=== PATIENT | male | born 1995 | race Caucasian/White ===

== ENCOUNTER 2023-01-29 07:03 | Outpatient (OUT) | payer MEDICARE, MEDICAID, SELFPAY ==
[2023-01-29 07:26] LABS: Basophils Percent Auto 0.5 % (0.2-2.0); Eosinophils Absolute Auto 0.1 10^3/uL (0.0-0.7); Eosinophils Percent Auto 1.9 % (0.9-7.0); Hematocrit 42.9 % (42.0-54.0); Hemoglobin 13.5 g/dL (14.0-18.0); Immature Granulocytes Abs Auto 0.01 10^3/uL (0.00-0.03); Immature Granulocytes Pct Auto 0.2 % (0.0-0.5); Lymphocytes Absolute Auto 1.6 10^3/uL (1.2-3.8); Lymphocytes Percent Auto 36.8 % (20.5-60.0); Mean Corpuscular HGB Conc 31.5 g/dL (29.9-35.2); Mean Corpuscular Hemoglobin 28.3 pg (25.9-34.0); Mean Corpuscular Volume 89.9 fL (80.0-94.0); Mean Platelet Volume 11.4 fL (9.5-13.5); Monocytes Absolute Auto 0.4 10^3/uL (0.3-0.8); Monocytes Percent Auto 9.4 % (1.7-12.0); Neutrophils Absolute Auto 2.2 10^3/uL (1.4-6.5); Neutrophils Percent Auto 51.2 % (43.0-75.0); Platelet Count 160 10^3/uL (150-450); Red Blood Count 4.77 10^6/uL (4.70-6.10); Red Cell Distribution Width 13.4 % (11.0-15.0); White Blood Count 4.2 10^3/uL (4.0-11.0)
[2023-01-29 14:46] LABS: Alanine Aminotransferase 21 U/L (16-63); Albumin Globulin Ratio 0.9; Alkaline Phosphatase 72 U/L (46-116); Anion Gap 11.7; Aspartate Amino Transferase 49 U/L (15-37); Bilirubin Total 0.6 mg/dL (0.2-1.0); Calcium 10.4 mg/dL (8.5-10.1); Carbon Dioxide 27.6 mmol/L (21.0-32.0); Chloride 112 mmol/L (98-107); Estimated GFR (African America >60 (>=60); Estimated GFR (Non-African Ame >60 (>=60); Globulin 4.3 g/dL; Glucose 88 mg/dL (74-106); Potassium 5.3 mmol/L (3.5-5.1); Sodium 146 mmol/L (136-145); Total Protein 8.3 g/dL (6.4-8.2); Valproic Acid 88.8 ug/mL (50.0-100.0)
[2023-01-30 04:09] LABS: Lithium (Eskalith(R)), Serum 0.8 mmol/L (0.5-1.2)
== END 2023-01-29 07:04 | disposition home or self-care (01) ==
LOC: LAB 07:03
PROVIDERS: PCP Family Medicine; Visit Provider Family Medicine
DX: Z79.899 Other long term (current) drug therapy (principal); M85.80 Other specified disorders of bone density and structure, unspecified site
CPT/HCPCS: 36415; 80053; 80164; 80178; 85025

== ENCOUNTER 2023-02-18 08:17 | Outpatient (OUT) | payer MEDICARE, MEDICAID, SELFPAY ==
--- NOTE | 2023-02-18 08:22 | XR_ITS ---
The [address] [address] Patient Name: PORFIRIO RUSSO MRN: [id number] date: 1995 Sex: M Assigned Patient Location: [facility] Current Patient Location: [facility] Accession/Order Number: [id number] Exam Date: 02/18/2023 08:28 Report Date: 02/18/2023 09:05 At the request of: MARCELINO JANE Procedure: XR DEXA axial skeleton EXAM: XR DEXA axial skeleton INDICATION: Osteopenia Evaluate bone mineral density. COMPARISON: DEXA scan 01/23/2021, 11/30/2018 FINDINGS: The bone density study was assessed by dual-energy x-ray absorptiometry with the [employer] scanner. The test results are expressed in T-Score, which is used for diagnosis for osteoporosis, and reflects the standard deviations from the mean peak bone mineral density in young adults. Additional information regarding the Z-Score reflects the standard deviations from the mean peak bone mineral density for age- and gender- matched subject. Lumbar Spine (L1-L4): BMD (gm/cm2): 1.256 T-Score: 0.3 Left Hip TOTAL: BMD (gm/cm2): 0.915 T-Score: -1.3 Left Hip NECK: BMD (gm/cm2): 0.971 T-Score: -0.8 Right hip TOTAL: BMD (gm/cm2): 0.932 T score: -1.2 Right hip NECK: BMD (gm/cm2): 1.059 T score: -0.1 XR/XR DEXA axial skeleton IMPRESSION: Bone mineral density WHO Classification: Osteopenia Fracture risk: Moderate REFERENCE: In children, postmenopausal women and males under age 50 not at increased risk for fractures, only Z-Scores, not T-Scores, are used to indicate fracture risk. A Z-Score above -2.0 is defined as within the expected range for age and Z-Score at or less than -2.0 is below the expected range for age. A Z-Score below the expected range for age in a patient with recent fractures and/or chronic corticosteroid treatment is consistent with a diagnosis of osteoporosis. In postmenopausal women and males over 50, comparison of the measured bone mineral density with the average value in young normal subjects (the T-Score) has been found to be useful in assessing fracture risk. Fracture risk approximately doubles for each 1.0 standard deviation (SD) that the individuals hip or spine bone mineral density is below the average value of young normal subjects. The World Health Organization (WHO) has provided the following definitions: 1. Normal: T-Score within one standard deviation of young adult mean value (T-Score at or above -1.0). 2. Osteopenia (low bone mass): T-Score more than one standard deviation below the young adult mean but less than 2.5 standard deviations below the young adult mean (T-Score between -1.0 and -2.5). 3. Osteoporosis: T-Score at or more than 2.5 standard deviations below the young adult mean (T-Score at or less than -2.5). 4. Severe Osteoporosis (established osteoporosis): T-Score more than 2.5 standard deviations below young adult and one or more fragility fracture (T-Score less than -2.5 plus fragility fractures). Electronically authenticated by: MAYUR OLSON Date: 02/18/2023 09:05
== END 2023-02-18 08:18 | disposition home or self-care (01) ==
LOC: RAD 08:17
PROVIDERS: PCP Family Medicine; Visit Provider Family Medicine
DX: M85.89 Other specified disorders of bone density and structure, multiple sites (principal)
CPT/HCPCS: 77080

== ENCOUNTER 2024-03-07 06:43 | Outpatient (OUT) | payer MEDICARE, MEDICAID, SELFPAY ==
[2024-03-07 08:17] LABS: Basophils Percent Auto 0.5 % (0.2-2.0); Eosinophils Percent Auto 0.5 % (0.9-7.0); Hematocrit 39.4 % (42.0-54.0); Immature Granulocytes Abs Auto 0.05 10^3/uL (0.00-0.03); Immature Granulocytes Pct Auto 1.2 % (0.0-0.5); Lymphocytes Absolute Auto 1.1 10^3/uL (1.2-3.8); Lymphocytes Percent Auto 28.1 % (20.5-60.0); Mean Corpuscular Hemoglobin 28.3 pg (25.9-34.0); Mean Corpuscular Volume 85.8 fL (80.0-94.0); Monocytes Absolute Auto 0.6 10^3/uL (0.3-0.8); Monocytes Percent Auto 14.8 % (1.7-12.0); Neutrophils Absolute Auto 2.2 10^3/uL (1.4-6.5); Neutrophils Percent Auto 54.9 % (43.0-75.0); Platelet Count 150 10^3/uL (150-450); Red Blood Count 4.59 10^6/uL (4.70-6.10); Red Cell Distribution Width 13.1 % (11.0-15.0); White Blood Count 4.1 10^3/uL (4.0-11.0)
[2024-03-07 09:13] LABS: Alanine Aminotransferase 27 U/L (16-63); Albumin Level 3.7 g/dL (3.4-5.0); Alkaline Phosphatase 89 U/L (46-116); Anion Gap 14.1; Aspartate Amino Transferase 25 U/L (15-37); BUN Creatinine Ratio 16.8; Bilirubin Total 0.3 mg/dL (0.2-1.0); Calcium 10.1 mg/dL (8.5-10.1); Carbon Dioxide 28.2 mmol/L (21.0-32.0); Chloride 104 mmol/L (98-107); Estimated GFR (African America >60 (>=60); Estimated GFR (Non-African Ame >60 (>=60); Globulin 3.8 g/dL; Glucose 86 mg/dL (74-106); Potassium 4.3 mmol/L (3.5-5.1); Sodium 142 mmol/L (136-145); Total Protein 7.5 g/dL (6.4-8.2)
== END 2024-03-07 06:44 | disposition home or self-care (01) ==
LOC: LAB 06:49
PROVIDERS: PCP Family Medicine; Visit Provider Family Medicine
DX: K59.00 Constipation, unspecified (principal); M85.80 Other specified disorders of bone density and structure, unspecified site; F31.9 Bipolar disorder, unspecified; Z79.899 Other long term (current) drug therapy
CPT/HCPCS: 36415; 80053; 80164; 82306; 85025

== ENCOUNTER 2024-08-30 06:39 | Outpatient (OUT) | payer MEDICARE, MEDICAID, SELFPAY ==
--- OUTSIDE RECORDS SUMMARY | 2024-08-30 06:42 | XMS_ITS | CCD ---
Author Organization [facility] Inform ion Partnership [facility] Care Team Providers Care Director Of Student Financial Services Name Role Phone BUCK, DR VERNON Marinelli Admitting Unavailable JANE, DR VERNON Marinelli Attending Unavailable JANE, DR VERNON Marinelli Consulting Unavailable JANE, DR VERNON Marinelli Primary Care Unavailable JANE, DR VERNON Marinelli Attending Unavailable WEST, DR CATY Aparicio Consulting Unavailable JANE, DR VERNON Marinelli Primary Care Unavailable JANE, DR VERNON Marinelli Admitting Unavailable JANE, DR VERNON Marinelli Consulting Unavailable JANE, DR VERNON Marinelli Attending Unavailable JANE, DR VERNON Marinelli Consulting Unavailable JANE, DR VERNON Marinelli Primary Care Unavailable JANE, DR VERNON Marinelli Admitting Unavailable Unavailable Primary Care Provider Kaycee e Unavailable Primary Care Provider VERNON Sanchez Primary Care Physician [phone] VERNON JANE Attending Unavailable JANEVERNON MOULTON Admitting Unavailable VICKEY MARQUEZ Attending Unavailable Jane Vernon GORDON Primary Care Provider [phone] Medications Current Medications Medication Drug Class(es) Dates Sig (Normalized) Sig (Original) acetaminophen 650 mg rectal suppository (3 sources) take 650 mg rectal route every four hours as needed for pain and fever acetaminophen (Tylenol) 650 MG suppository Insert 650 mg into the rectum every 4 (four) hours if needed for mild pain or fever Active Aloe-Sodium Chloride (AYR SALINE NASAL GEL NASAL) (2 sources) apply 1 spray(s) nasal route twice daily Aloe-Sodium Chloride (AYR SALINE NASAL GEL NASAL) Instill 1 [place] into each nostril 2 times daily. 0 Active benzoyl peroxide 0.05 mg/mg / clindamycin 0.01 mg/mg topical gel (2 sources) Lincosamide Antibacterial Start: 04-09-2020 clindamycin-benzoy l peroxide (BENZACLIN) gel bisacodyl 10 mg rectal suppository (3 sources) Stimulant Laxative bisacodyl (Dulcolax) 10 MG suppository Insert 10 mg into the rectum Active busPIRone hydrochloride 10 mg oral tablet (5 sources) Start: 05-13-2019 take 2 tablets by mouth three times daily busPIRone (BUSPAR) 10 MG tablet Take 20 mg by mouth 3 times daily. 0 05/13/2019 Active take 1 tablet by aylin th in the morning, then take 1 tablet by mouth in the evening, then take 1 tablet by mouth at bedtime busPIRone (Buspar) 10 MG tablet Take 10 mg by mouth in the morning and 10 mg in the evening and 10 mg before bedtime. Active cloNIDine hydrochloride 0.2 mg oral tablet (5 sources) Central alpha-2 Adrenergic Agonist Start: 05-13-2019 take 1 tablet by mouth three times daily cloNIDine (CATAPRES) 0.2 MG tablet Take 0.2 mg by mouth 3 times daily. 0 05/13/2019 Active 1 ml denosumab 60 mg/ml prefilled syringe (3 sources) RANK Ligand Inhibitor inject 60 mg by subcutaneous injection once denosumab (Prolia) 60 MG/ML solution prefilled syringe Inject 60 mg under the skin 1 (one) time Active guanFACINE 2 mg oral tablet (5 sources) Central alpha-2 Adrenergic Agonist take 1 tablet by mouth in the morning, then take 1 tablet by mouth in the evening, then take 1 tablet by mouth at bedtime guanFACINE (Tenex) 2 MG tablet Take 1 tablet by mouth in the morning and 1 tablet in the evening and 1 tablet before bedtime. Active take 1 tablet by mouth once ulysses y GuanFACINE HCl 2 MG TB24 Take 1 Tablet by mouth daily. 0 Active ibuprofen 200 mg oral tablet (3 sources) Nonsteroidal Anti-inflammatory Drug take 1 tablet by mouth every six hours as needed for pain ibuprofen 200 MG tablet Take 200 mg by mouth every 6 (six) hours if needed for mild pain take 1-2 tablets by oral route every 6 hours as needed Oral Active iloperidone 12 mg oral tablet (5 sources) Atypical Antipsychotic Start: 05-13-20 19 take 1 tablet by mouth at bedtime Iloperidone (Fanapt) 12 MG TABS Take 12 mg by mouth at bedtime. 0 05/13/2019 Active linaclotide 0.29 mg oral capsule (5 sources) Guanylate Cyclase-C Agonist linaCLOtide (Linzess) 290 MCG capsule Take 290 mcg by mouth in the morning. Take before meals. take 1 capsule (290 mcg) by oral route once daily on an empty stomach at least 30 minutes before 1st meal of the day Oral 1 . Active lithium carbonate 300 mg oral capsule (5 sources) take 1 capsule by mouth in the morning lithium 300 MG capsule Take 300 mg by mouth in the morning and 300 mg in the evening. Take with meals. Active loratadine 10 mg oral tablet (5 sources) take 1 tablet by mouth once daily loratadine (Claritin) 10 MG tablet Take 10 mg by mouth Daily Active LORazepam 1 mg oral tablet (5 sources) Benzodiazepine take 1 tablet by mouth every eight hours as needed for anxiety LORazepam (Ativan) 1 MG tablet Take 1 mg by mouth every 8 (eight) hours if needed for anxiety Active take 1 tablet by mouth three teo es daily LORazepam (ATIVAN) 1 MG tablet Take 1 mg by mouth 3 times daily. 0 Active menthol 0.0044 mg/mg / zinc oxide 0.2 mg/mg topical ointment (3 sources) menthol-zinc oxi de (Calmoseptine - Risamine) 0.44-20.625 % ointment Apply 1 application topically if needed for irritation *please review for potential _update for eprescription and drug interaction check* Active metoprolol tartrate 100 mg oral tablet (5 sources) beta-Adrenergic Jeffry take 1 tablet by mouth in the morning metoprolol tartrate (Lopressor) 100 MG tablet Take 100 mg by mouth in the morning and 100 mg before bedtime. Active montelukast 10 mg oral tablet (5 sources) Leukotriene Receptor Antagonist take 1 tablet by mouth at bedtime montelukast (Singulair) 10 MG tablet Take 10 mg by mouth at bedtime Active multivitamin-children's (RS Complete) 18 MG chewable tablet (3 sources) multivitamin-chi ldren' s (RS Complete) 18 MG chewable tablet Chew 1 tablet Daily Active naltrexone hydrochloride 50 mg oral tablet (5 sources) Opioid Antagonist take 1 tablet by mouth in the morning naltrexone (Depade) 50 MG tablet Take 50 mg by mouth in the morning and 50 mg before bedtime. Active OLANZapine 20 mg oral tablet (5 sources) Atypical Antipsychotic take 2 tablets by mouth once daily OLANZapine (ZyPREXA) 20 MG tablet Take 2 tablets by mouth Daily Active take 1 tablet by mouth at bedtim e OLANZapine (ZyPREXA) 10 MG tablet Take 10 mg by mouth at bedtime. 0 Active ondansetron 4 mg oral tablet (3 sources) Serotonin-3 Receptor Antagonist take 1 tablet by mouth every six hours as needed for nausea and vomiting ondansetron (Zofran) 4 MG tablet Take 4 mg by mouth every 6 (six) hours if needed for nausea or vomiting Active Pediatric Multiple Vit-C-FA (CHILDRENS CHEWABLE VITAMINS ORAL) (2 sources) take 1 tablet by mouth once daily Pediatric Multiple Vit-C-FA (CHILDRENS CHEWABLE VITAMINS ORAL) Take 1 Tablet by mouth daily. 0 Active selenium sulfide 25 mg/ml medicated shampoo (2 sources) Start: 0 selenium sulfide 2.5 % topical suspension sennosides, residential 8.6 mg oral tablet (3 sources) take 2 tablets by mouth in the morning, then take 2 tablets by mouth in the evening, then take 2 tablets by mouth at bedtime senna (Senokot) 8.6 MG tablet Take 2 tablets by mouth in the morning and 2 tablets in the evening and 2 tablets before bedtime. Active sodium chloride 0.111 meq/ml nasal solution (3 sources) sodium chloride ([place]) 0.65 % nasal spray Administer 1 spray into each nostril if needed for congestion Active 24 hr divalproex sodium 500 mg extended release oral tablet (2 sources) Mood Stabilizer, Anti-epileptic Agent take 3 tablets by mouth at bedtime divalproex ER (DEPAKOTE ER) 500 MG ER tablet Take 3 Tablets by mouth at bedtime. 0 Active Problems Active Problems Problem Classification Problem Date Documented Da te Episodic/Chronic Anxiety disorders (3 sources) Mental health problem; Translations: [Nonpsychotic mental disorder, unspecified] Onset: 03-12-2024 03-12-2024 Chronic Attention-deficit, conduct, and disruptive behavior disorders (5 sources) Attention deficit hyperactivity disorder; Translations: [Attention-deficit hyperactivity disorder, unspecified type] Onset: 03-12-2024 05-25-2020 Chronic Attention-deficit, conduct, and disruptive behavior disorders (5 sources) Disruptive behavior disorder; Translations: [Conduct disorder, unspecified] Onset: 03-12-2024 03-12-2024 Chronic Developmental disorders (5 sources) Intellectual disability; Translations: [Unspecified intellectual disabilities] Onset: 03-12-2024 05-25-2020 Chronic Disorders usually diagnosed in infancy, childhood, or adolescence (5 sources) Autistic disorder; Translations: [Autistic disorder] Onset: 03-12-2024 05-25-2020 Chronic Headache; including migraine (2 sources) Migraine; Translations: [Migraine, unspecified, not intractable, without status migrainosus] 05-25-2020 Chronic Malaise and fatigue (4 sources) Weakness; Translations: [WEAKNESS] Onset: 05-21-2022 Episodic Mood disorders (10 sources) Bipolar disorder; Translations: [Bipolar disorder, unspecified] Onset: 03-12-2024 05-25-2020 Chronic Other bone disease and musculoskeletal deformities (2 sources) Osteopenia; Translations: [Other specified disorders of bone density and structure, unspecified site] 05-25-2020 Episodic Other eye disorders (2 sources) Nystagmus; Translations: [Unspecified nystagmus] 05-25-2020 Chronic Other gastrointestinal disorders (2 sources) Dysphagia; Translations: [Dysphagia, unspecified] 05-25-2020 Episodic Other gastrointestinal disorders (2 sources) Chronic constipation; Translations: [Other constipation] 05-25-2020 Episodic Other skin disorders (2 sources) Acne; Translations: [Acne, unspecified] 05-25-2020 Episodic Other upper respiratory infections (2 sources) Chronic sinusitis; Translations: [Chronic sinusitis, unspecified] 05-25-2020 Chronic Spondylosis; intervertebral disc disorders; other back problems (1 source) Spondylosis without myelopathy or radiculopathy, cervical region; Translations: [SPONDYLS W/O MYELO-/RADICULOP CERV] Onset: 05-26-2022 Chronic Past or Other Problems Problem Classification Problem Date Documented Date Episodic/Chronic Conditions associated with dizziness or vertigo (4 sources) Dizziness and giddiness; Translations: [DIZZINESS AND GIDDINESS] Onset: 03-22-2022 Episodic Disorders of teeth and jaw (2 sources) Dental caries; Translations: [Dental caries, unspecified] Onset: 05-22-2020 05-22-2020 Episodic E Codes: Fall (3 sources) Fall; Translations: [Unspecified fall, initial encounter] Onset: 03-12-2024 03-12-2024 Episodic Epilepsy; convulsions (4 sources) Seizure; Translations: [Unspecified convulsions] Onset: 03-16-2024 03-16-2024 Episodic Other circulatory disease (1 source) Hypotension, unspecified; Translations: [HYPOTENSION UNSPECIFIED] Onset: 03-25-2022 Episodic Other inflammatory condition of skin (5 sources) Seborrheic dermatitis; Translations: [Seborrheic dermatitis, unspecified] Onset: 03-12-2024 05-25-2020 Episodic Other injuries and conditions due to external causes (1 source) History of falling; Translations: [HISTORY OF FALLING] Onset: 03-25-2022 Episodic Other nutritional; endocrine; and metabolic disorders (4 sources) Developmental delay; Translations: [Unspecified lack of expected normal physiological development in childhood] Onset: 03-16-2024 03-16-2024 Episodic Results Test Name Value Interpretation Reference Range Facility Progress Noteson 08-11-2024 Security Patrol Driver Authentication Interface Message Text Parent/guardian/pat ient was contacted for PAT AND OR Visit scheduled -- confirmed information with mom, also informed mom importance of receiving PSE call -- if not received surgery will be canceled 09/30/2024----- July at 2:54:05 PM ----- ----- Provider: LEONIE Zepeda, Dental-Javascript Web Developer -- Clinic: [place] ----- Normal [facility] Valpro[facility] Acidon 03-19-2023 Valproate [Moles/Vol] 105 microgram/mL Abnormal 50-99 [facility] Comment on above: Result Comment: Crit ical Result verified by repeat analysis\Critical Result S_VPA:105.[address] JANE AT [facility] by MIGUEL PORTER And Read Back For Confirmation at: 03/19/2023 09:27:40 Performed By: #### 2 206002, 6012304, 4423077, 7959954, 7091734, 05817754, 6170986, 3674740 #### [facility] [address] [place] [address] Auto Diffon 03-18-2023 Basophils/100 WBC (Bld) 0.9 % Normal 0.0-2.0 [facility] Comment on above: Order Comment: Order Added by Discern Expert. Performed By: #### 2 590283, 5227469, 7817866, 1562374, 7781804, 91183514, 0599206, 0316806 #### [facility] [address] [place] [address] Basophils/Leukocytes Auto (Bld) [Pure # fraction] 0.0 E9/L Normal 0.0-0.2 [facility] Comment on above: Order Comment: Order Added by Discern Expert. Performed By: #### 2 338955, 1341920, 3736015, 9487419, 4133441, 17420149, 3328623, 8983347 #### [facility] [address] [place] [address] Eosinophils/100 WBC (Bld) 4.5 % Normal 0.0-8.0 [facility] Comment on above: Order Comment: Order Added by Discern Expert. Performed By: #### 2 502200, 4929904, 9865296, 5563743, 0713227, 49168714, 4741909, 1036410 #### [facility] [address] [place] [address] Eosinophils/Leukocytes Auto (Bld) [Pure # fraction] 0.1 E9/L Normal 0.0-0.5 [facility] Comment on above: Order Comment: Order Added by Discern Expert. Performed By: #### 2 145375, 1230544, 6129430, 3128167, 9104870, 09132936, 5025837, 4133725 #### [facility] [address] [place] [address] Lymphocytes/100 WBC (Bld) 37.2 % Normal 14.0-50.0 [facility] Comment on above: Order Comment: Order Added by Discern Expert. Performed By: #### 2 116346, 6489743, 5604250, 5078246, 3450175, 18735423, 5183164, 6264078 #### [facility] [address] [place] [address] Lymphocytes/Leukocytes Auto (Bld) [Pure # fraction] 1.2 E9/L Normal 1.0-4.0 [facility] Comment on above: Order Comment: Order Added by Radha Expert. Performed By: #### 2 102027, 3731535, 1269753, 4188145, 2035804, 99577179, 2156403, 0947821 #### [facility] [address] [place] [address] Monocytes/100 WBC (Bld) 8.8 % Normal 4.0-14.0 [facility] Comment on above: Order Comment: Order Added by Radha Expert. Performed By: #### 2 050272, 9539974, 6709596, 9041597, 8963349, 49545984, 3413246, 1281677 #### [facility] [address] [place] [address] Monocytes/Leukocytes Auto (Bld) [Pure # fraction] 0.3 E9/L Normal 0.2-1.0 [facility] Comment on above: Order Comment: Order Added by Radha Expert. Performed By: #### 2 558258, 1758444, 3947475, 7051900, 5836735, 05449752, 6360750, 2309497 #### [facility] [address] [place] [address] Neutrophils/100 WBC (Bld) 48.6 % Normal 36.0-75.0 [facility] Comment on above: Order Comment: Order Added by Discern Expert. Performed By: #### 2 931023, 5172434, 0687613, 3181325, 0326077, 56603841, 6209023, 2197548 #### [facility] [address] [place] [address] Neutrophils/Leukocytes Auto (Bld) [Pure # fraction] 1.6 E9/L Low 2.0-7.5 [facility] Comment on above: Order Comment: Order Added by Radha Expert. Performed By: #### 2 226051, 3495351, 7656118, 8524980, 8244784, 69795624, 5713932, 2820629 #### [facility] [address] [place] [address] CBC w/ Auto Diffon 3 Erythrocyte distribution width (RBC) [Ratio] 14.6 % High 10.9-14.2 [facility] Comment on above: Performed By: #### 2 629855, 8830049, 1769001, 1406442, 6238763, 67838226, 6879020, 0348379 #### [facility] [address] [place] [address] Hematocrit (Bld) [Volume fraction] 42.5 % Normal 37.7-49.0 [facility] Comment on above: Performed By: #### 2 303417, 7376544, 1012244, 4273783, 0749911, 96524282, 2504574, 1755502 #### [facility] [address] [place] [address] Hemoglobin (Bld) [Mass/Vol] 14.0 g/dL Normal 13.5-17.5 [facility] Comment on above: Performed By: #### 2 284150, 5597122, 1741934, 5780145, 2502199, 42075057, 4366266, 4629133 #### [facility] [address] [place] [address] MCH (RBC) [Entitic mass] 28.2 pg Normal 27.0-34.0 [facility] Comment on above: Performed By: #### 2 711241, 5942437, 7870859, 1547736, 3815908, 06196168, 3359738, 7523728 #### [facility] [address] [place] [address] MCHC (RBC) [Mass/Vol] 33.0 g/dL Normal 31.4-36.0 [facility] Comment on above: Performed By: #### 2 839725, 0498528, 2677857, 2994850, 9754784, 08657339, 2164215, 2507751 #### [facility] [address] [place] [address] MCV (RBC) [Entitic vol] 85.4 fL Normal 80.0-100.0 [facility] Comment on above: Performed By: #### 2 096488, 9733196, 8827581, 5334645, 7046453, 72545731, 0744466, 6238607 #### [facility] [address] [place] [address] Platelet mean volume (Bld) [Entitic vol] 9.2 fL Normal 6.4-10.8 [facility] Comment on above: Performed By: #### 2 301583, 4220453, 5588820, 7813116, 7718018, 95766801, 3901437, 7575848 #### [facility] [address] [place] [address] Platelets (Bld) [#/Vol] 158.0 E9/L Normal 150.0-500.0 [facility] Comment on above: Performed By: #### 2 269856, 3788914, 7698348, 2752689, 6254230, 94272121, 5681638, 8251134 #### [facility] [address] [place] [address] RBC (Bld) [#/Vol] 5.0 E12/L Normal 4.3-5.9 [facility] Comment on above: Performed By: #### 2 254202, 9139169, 7883077, 3919020, 1013413, 43122388, 1884774, 7111823 #### [facility] [address] [place] [address] WBC corrected for nucl RBC Auto (Bld) [#/Vol] 3.2 E9/L Low 4.0-11.0 [facility] Comment on above: Performed By: #### 2 337908, 4233973, 6525663, 2627123, 3259291, 16417733, 0852179, 1144066 #### [facility] [address] [place] [address] CHEMISTRYOrdered By: SYSTEM SYSTEM on 03-18-2023 Albumin [Mass/Vol] 4.3 g/dL Normal 3.3 - 5.0 gm/dL [facility] Albumin/Globulin [Mass ratio] 1.2 {ratio} Normal 1.1 - 2.2 [facility] ALP [Catalytic activity/Vol] 53 [iU]/d Normal 21 - 98 Int._Unit/L [facility] ALT No additional P-5'-P [Catalytic activity/Vol] 17 [iU]/d Normal 6 - 46 Int._Unit/L [facility] Anion gap [Moles/Vol] 11 mmol/L Normal 6 - 16 mEq/L [facility] AST [Catalytic activity/Vol] 21 [iU]/d Normal 5 - 43 Int._Unit/L [facility] Bilirubin [Mass/Vol] 0.6 mg/dL Normal 0.0 - 1 .1 mg/dL [facility] Calcium [Mass/Vol] 10.2 mg/dL Normal 8.9 - 11. 1 mg/dL [facility] Chloride [Moles/Vol] 103 mmol/L Normal 101 - 1 11 mmol/L [facility] CO2 [Moles/Vol] 27 mmol/L Normal 21 - 31 mmol/L [facility] Cobalamin (Vitamin B12) [Mass/Vol] 591 pg/mL Normal 50 - 1500 pg/mL [facility] Creatinine [Mass/Vol] 1.2 mg/dL Normal 0.5 - 1.3 mg/dL [facility] Ferritin [Mass/Vol] 64 ng/mL Normal 24 - 336 ng/mL [facility] GFR/1.73 sq M.predicted among non-blacks MDRD (S/P/Bld) [Vol rate/Area] 84 mL/min/1.73 m2 Normal >=59mL/min/1. 73 m2 [facility] Chem S Globulin (S) [Mass/Vol] 3.5 g/dL Normal 1.4 - 4.0 gm/dL [facility] Glucose [Mass/Vol] 90 mg/dL Normal 55 - 199 mg/dL [facility] Iron [Mass/Vol] 116 ug/dL Normal 35 - 153 mcg/dL [facility] Potassium [Moles/Vol] 3.9 mmol/L Normal 3.5 - 5.3 mmol/L [facility] Remisol Protein [Mass/Vol] 7.8 g/dL Normal 6.0 - 7.8 gm/dL [facility] Remisol Sodium [Moles/Vol] 137 mmol/L Normal 135 - 145 mmol/L [facility] Remisol Urea nitrogen [Mass/Vol] 18 mg/dL Normal 5 - 21 mg/dL [facility] Remisol Urea nitrogen/Creatinine [Mass ratio] 15 mg/mg Normal 10 - 20 [facility] Remisol CMPon 03-18-2023 Albumin [Mass/Vol] 4.3 g/dL Normal 3.3-5.0 [facility] Comment on above: Performed By: #### 2 643418, 1002127, 7389017, 1084381, 3776263, 10020976, 7785851, 9924177 #### [facility] [address] [place] [address] Albumin/Globulin (S) [Mass conc ratio] 1.2 Normal 1.1-2.2 [facility] Comment on above: Performed By: #### 2 290864, 7414148, 9612446, 1124038, 8570787, 81620909, 2325728, 1784134 #### [facility] [address] [place] [address] ALP [Catalytic activity/Vol] 53 Int._Unit/L Normal 21-98 [facility] Comment on above: Performed By: #### 2 246501, 2266685, 5487289, 2727738, 4878915, 56926389, 4582336, 0079701 #### [facility] [address] [place] [address] ALT No additional P-5'-P [Catalytic activity/Vol] 17 Int._Unit/L Normal 6-46 [facility] Comment on above: Performed By: #### 2 692994, 0238341, 8038194, 3279954, 0228709, 42508026, 6942007, 3956046 #### [facility] [address] [place] [address] Anion gap [Moles/Vol] 11 mmol/L Normal 6-16 [facility] Comment on above: Performed By: #### 2 495953, 0729679, 1753075, 5765577, 2501367, 96924610, 3437200, 5381828 #### [facility] [address] [place] [address] AST [Catalytic activity/Vol] 21 Int._Unit/L Normal 5-43 [facility] Comment on above: Performed By: #### 2 047175, 5088855, 8485073, 3852107, 8578608, 01314545, 0962425, 1044386 #### [facility] [address] [place] [address] Bilirubin [Mass/Vol] 0.6 mg/dL Normal 0.0-1.1 [facility] Comment on above: Performed By: #### 2 915706, 4508876, 1944499, 4705593, 0778481, 56249573, 5030552, 3415727 #### [facility] [address] [place] [address] Calcium [Mass/Vol] 10.2 mg/dL Normal 8.9-11.1 [facility] Comment on above: Performed By: #### 2 702956, 5686963, 8768102, 8525605, 3384985, 45362078, 4516726, 3160011 #### [facility] [address] [place] [address] Chloride [Moles/Vol] 103 mmol/L Normal 101-111 [facility] Comment on above: Performed By: #### 2 537794, 9663254, 1538009, 0898344, 9596964, 60481375, 6839960, 9554303 #### [facility] [address] [place] [address] CO2 [Moles/Vol] 27 mmol/L Normal 21-31 [facility] Comment on above: Performed By: #### 2 212489, 2473965, 8125443, 4757011, 2798946, 66989303, 6202497, 6523793 #### [facility] [address] [place] [address] Creatinine [Mass/Vol] 1.2 mg/dL Normal 0.5-1.3 [facility] Comment on above: Performed By: #### 2 522272, 6377070, 0254510, 7257512, 4351149, 82517277, 4051907, 9681730 #### [facility] [address] [place] [address] Globulin (S) [Mass/Vol] 3.5 g/dL Normal 1.4-4.0 [facility] Comment on above: Performed By: #### 2 097267, 1759390, 6278059, 9228526, 7681824, 83343099, 8258846, 9236625 #### [facility] [address] [place] [address] Glucose [Mass/Vol] 90 mg/dL Normal 55-199 [facility] Comment on above: Result Comment: If t his glucose result represents a fasting glucose, interpretation should refer to the following reference range: 55-99 mg/dL Performed By: #### 2 682938, 1881562, 6188497, 1516038, 4106049, 80382270, 2627939, 9584263 #### [facility] [address] [place] [address] Potassium [Moles/Vol] 3.9 mmol/L Normal 3.5-5.3 [facility] Comment on above: Performed By: #### 2 410788, 1387061, 8089700, 5156965, 6189507, 76150754, 5800509, 6316930 #### [facility] [address] [place] [address] Protein [Mass/Vol] 7.8 g/dL Normal 6.0-7.8 [facility] Comment on above: Performed By: #### 2 525572, 0979368, 4387140, 3884611, 8394830, 26703841, 6284100, 7514358 #### [facility] [address] [place] [address] Sodium [Moles/Vol] 137 mmol/L Normal 135-145 [facility] Comment on above: Performed By: #### 2 057334, 0750198, [id number], [id number], 2450206, [id number], [id number], [id number] #### [facility] [address] [place] [address] Urea nitrogen [Mass/Vol] 18 mg/dL Normal 5-21 [facility] Comment on above: Performed By: #### 2 [id number], [id number], 6412607, 6483189, 3921162, [id number], 9971750, [id number] #### [facility] [address] [place] [address] Urea nitrogen/Creatinine [Mass ratio] 15 No Units Normal 10-20 [facility] Comment on above: Performed By: #### 2 [id number], 9559756, 8389904, 3301214, 9806951, [id number], 1666546, [id number] #### [facility] [address] [place] [address] Ferritinon 03-18-2023 Ferritin [Mass/Vol] 64 ng/mL Normal 24-336 [facility] Comment on above: Result Comment: NORM ALS MEN <30 YRS 16-132 ng/mL MEN >30 YRS 8-338 ng/mL WOMEN (PREMEN) 6-104 ng/mL WOMEN (POSTMEN) 12-210 ng/mL Performed By: #### 2 214796, 1964568, 6352009, 2452214, 8532844, 79277384, 9082002, 1813344 #### [facility] [address] [place] [address] HEMATOLOGYOrdered By: SYSTEM SYSTEM on 03-18-2023 Basophils/100 WBC (Bld) 0.9 % Normal 0.0 - 2.0 % [facility] Basophils/Leukocytes Auto (Bld) [Pure # fraction] 0.0 E9/L Normal 0.0 - 0.2 E9/L [facility] Eosinophils/100 WBC (Bld) 4.5 % Normal 0.0 - 8.0 % [facility] Eosinophils/Leukocytes Auto (Bld) [Pure # fraction] 0.1 E9/L Normal 0.0 - 0.5 E9/L [facility] Lymphocytes/100 WBC (Bld) 37.2 % Normal 14.0 - 50.0 % [facility] Lymphocytes/Leukocytes Auto (Bld) [Pure # fraction] 1.2 E9/L Normal 1.0 - 4.0 E9/L [facility] Monocytes/100 WBC (Bld) 8.8 % Normal 4.0 - 14.0 % [facility] Monocytes/Leukocytes Auto (Bld) [Pure # fraction] 0.3 E9/L Normal 0.2 - 1.0 E9/L [facility] Neutrophils/100 WBC (Bld) 48.6 % Normal 36.0 - 75.0 % [facility] Neutrophils/Leukocytes Auto (Bld) [Pure # fraction] 1.6 E9/L Low 2.0 - 7.5 E9/L [facility] HEMATOLOGYOrdered By: Neto Rivas on 03-18-2023 Erythrocyte distribution width (RBC) [Ratio] 14.6 % High 10.9 - 14.2 % [facility] Hematocrit (Bld) [Volume fraction] 42.5 % Normal 37.7 - 49.0 % [facility] S Hemoglobin (Bld) [Mass/Vol] 14.0 g/dL Normal 13.5 - 17.5 gm/dL [facility] MCH (RBC) [Entitic mass] 28.2 pg Normal 27.0 - 34.0 pg [facility] MCHC (RBC) [Mass/Vol] 33.0 g/dL Normal 31.4 - 36.0 gm/dL [facility] MCV (RBC) [Entitic vol] 85.4 fL Normal 80.0 - 100.0 fL [facility] Platelet mean volume (Bld) [Entitic vol] 9.2 fL Normal 6.4 - 10.8 fL [facility] Platelets (Bld) [#/Vol] 158.0 E9/L Normal 150.0 - 500.0 E9/L [facility] RBC (Bld) [#/Vol] 5.0 E12/L Normal 4.3 - 5.9 E12/L [facility] WBC corrected for nucl RBC Auto (Bld) [#/Vol] 3.2 E9/L Low 4.0 - 11.0 E9/L [facility] Ironon 03-18-2023 Iron [Mass/Vol] 116 microgram/dL Normal 35-153 [facility] Comment on above: Performed By: #### 2 [id number], 9932251, 9083970, 7346496, 7714487, 14551493, 6636634, 7840468 #### [facility] [address] [place] [address] Physician Orderon 03-18-2023 Physician Order [id number] Normal [facility] Vit B12on 03-18-2023 Cobalamin (Vitamin B12) [Mass/Vol] 591 pg/mL Normal 50-1500 [facility] Comment on above: Performed By: #### 2 916020, 8960854, 6060163, 5909303, 0369925, 36900944, 1937309, 4371764 #### [facility] [address] [place] [address] eGFRon 03-18-2023 GFR/1.73 sq M.predicted among non-blacks MDRD (S/P/Bld) [Vol rate/Area] 84 mL/min/1.73 m2 Normal >=59 [facility] Comment on above: Order Comment: Order added by Discern Expert. Result Comment: Colloid Mill Operator aury kidney disease could be indicated at eGFR's of less than 60 mL/min/1.73m2. Kidney failure is indicated at less than 15 mL/min/1.73m2. Performed By: #### 2 [id number], 4228562, 9577651, 4051670, 7510333, [id number], 0740621, 8435834 #### [facility] [address] [place] [address] DEPAKENE/ VALPROIC ACIDon DEPAKENE 87.4 ug/ml Normal 50.0-100.0 [facility] Comment on above: Performed By: #### V ALP #### [facility] [address] [place] [address] Dr. Erendira Warren XR CSPINE MIN 4 VIEWSon 11-0 XR CSPINE MIN 4 VIEWS EXAMINATION: XR CSPINE MIN 4 VIEWS HISTORY: Weakness of neck COMPARISON: No relevant comparison available. FINDINGS: BONES: Reversal of normal cervical lordosis. No acute fracture or spondylolisthesis. Moderate bulky anterior spondylosis C5-C6 DISC SPACES: Normal. No significant disc height narrowing, subluxation, or endplate abnormality. PARASPINOUS: Negative. No paraspinous abnormality is seen. OTHER: Negative. IMPRESSION: Moderate anterior spondylosis C5-C6 Reversal of cervical lordosis Electronically authenticated by: CATY DEMPSEY Date: 2022-05-21 19:01 Normal [facility] CBC AUTO DIFFon 03-22-2022 BASO # 0.0 103/ul Normal 0.0-0.1 [facility] Comment on above: Performed By: #### C BC #### [facility] [address] [place] [address] Dr. Erendira Warren Basophils/100 WBC (Bld) 0.4 % Normal 0.2-2.0 [facility] Comment on above: Performed By: #### C BC #### [facility] [address] [place] [address] Dr. Erendira Warren EO # 0.1 103/ul Normal 0.0-0.7 [facility] Comment on above: Performed By: #### C BC #### [facility] [address] [place] [address] Dr. Erendira Warren Eosinophils/100 WBC (Bld) 1.6 % Normal 0.9-7.0 [facility] Comment on above: Performed By: #### C BC #### [facility] [address] [place] [address] Dr. Erendira Warren Erythrocyte distribution width (RBC) [Ratio] 13.3 % Normal 11.0-15.0 [facility] Comment on above: Performed By: #### C BC #### [facility] [address] [address] [address] Erendira Warren Hematocrit (Bld) [Volume fraction] 42.6 % Normal 42.0-54.0 [facility] Comment on above: Performed By: #### C BC #### [facility] [address] [address] [address] Erendira Warren Hemoglobin (Bld) [Mass/Vol] 13.2 g/dL Critically low 14.0-18.0 [facility] Comment on above: Performed By: #### C BC #### [facility] [address] [address] [address] Erendira Warren IG # 0.03 10e3/ul Normal 0.00-0.03 [facility] Comment on above: Performed By: #### C BC #### [facility] [address] [place] [address] Dr. Erendira Warren IG % 0.6 % Critically high 0.0-0.5 [facility] Comment on above: Performed By: #### C BC #### [facility] [address] [place] [address] Dr. Erendira Warren LYMPH # 1.0 103/ul Critically low 1.2-3.8 [facility] Comment on above: Performed By: #### C BC #### [facility] [address] [place] [address] Dr. Erendira Warren Lymphocytes/100 WBC (Bld) 19.6 % Critically low 20.5-60.0 [facility] Comment on above: Performed By: #### C BC #### [facility] [address] [place] [address] Dr. Erendira Warren MANUAL DIFF REQ NO Normal [facility] Comment on above: Performed By: #### C BC #### [facility] [address] [place] [address] Dr. Erendira Warren MCH (RBC) [Entitic mass] 28.6 pg Normal 25.9-34.0 [facility] Comment on above: Performed By: #### C BC #### [facility] [address] [address] [address] Erendira Warren MCHC (RBC) [Mass/Vol] 31.0 g/dL Normal 29.9-35.2 [facility] Comment on above: Performed By: #### C BC #### [facility] [address] [address] [address] Erendira Warren MCV (RBC) [Entitic vol] 92.4 fL Normal 80.0-94.0 [facility] Comment on above: Performed By: #### C BC #### [facility] [address] [place] [address] Dr. Erendira Warren MONO # 0.3 103/ul Normal 0.3-0.8 [facility] Comment on above: Performed By: #### C BC #### [facility] [address] [place] [address] Dr. Erendira Warren Monocytes/100 WBC (Bld) 5.8 % Normal 1.7-12.0 [facility] Comment on above: Performed By: #### C BC #### [facility] [address] [place] [address] Dr. Erendira Warren NEUT # 3.6 103/ul Normal 1.4-6.5 [facility] Comment on above: Performed By: #### C BC #### [facility] [address] [place] [address] Dr. Erendira Warren Neutrophils/100 WBC (Bld) 72.0 % Normal 43.0-75.0 [facility] Comment on above: Performed By: #### C BC #### [facility] [address] [place] [address] Dr. Erendira Warren Platelet mean volume (Bld) [Entitic vol] 11.0 fL Normal 9.5-13.5 [facility] Comment on above: Performed By: #### C BC #### [facility] [address] [place] [address] Dr. Erendira Warren PLT 172 103/ul Normal 150-450 [facility] Comment on above: Performed By: #### C BC #### [facility] [address] [place] [address] Dr. Erendira Warren RBC 4.61 106/ul Critically low 4.70-6.10 [facility] Comment on above: Performed By: #### C BC #### [facility] [address] [place] [address] Dr. Erendira Warren WBC 5.0 103/ul Normal 4.0-11.0 [facility] Comment on above: Performed By: #### C BC #### [facility] [address] [place] [address] Dr. Erendira Warren DEPAKENE/VALPROICon 03-22-20 22 DEPAKENE 79.8 ug/ml Normal 50.0-100.0 [facility] Comment on above: Performed By: #### C MP, VALP #### [facility] [address] [place] [address] Dr. Erendira Warren PROF 14(COMP METB)on 022 Albumin [Mass/Vol] 3.5 g/dL Normal 3.4-5.0 [facility] Comment on above: Performed By: #### C MP, VALP #### [facility] [address] [place] [address] Dr. Erendira Warren Albumin/Globulin [Mass ratio] 0.9 {ratio} Normal [facility] Comment on above: Performed By: #### C MP, VALP #### [facility] [address] [place] [address] Dr. Erendira Warren ALP [Catalytic activity/Vol] 75 U/L Normal 46-116 [facility] Comment on above: Performed By: #### C MP, VALP #### [facility] [address] [place] [address] Dr. Erendira Warren ALT [Catalytic activity/Vol] 35 U/L Normal 16-63 [facility] Comment on above: Performed By: #### C MP, VALP #### [facility] [address] [place] [address] Dr. Erendira Warren Anion gap [Moles/Vol] 13.8 mmol/L Normal [facility] Comment on above: Performed By: #### C MP, VALP #### [facility] [address] [place] [address] Dr. Erendira Warren AST [Catalytic activity/Vol] 22 U/L Normal 15-37 [facility] Comment on above: Performed By: #### C MP, VALP #### [facility] [address] [place] [address] Dr. Erendira Warren Bilirubin [Mass/Vol] 0.4 mg/dL Normal 0.2-1.0 [facility] Comment on above: Performed By: #### C MP, VALP #### [facility] [address] [place] [address] Dr. Erendira Warren Calcium [Mass/Vol] 10.3 mg/dL Critically high 8.5-10.1 [facility] Comment on above: Performed By: #### C MP, VALP #### [facility] [address] [place] [address] Dr. Erendira Warren Chloride [Moles/Vol] 109 mmol/L Critically high 98-107 [facility] Comment on above: Performed By: #### C MP, VALP #### [facility] [address] [place] [address] Dr. Erendira Warren CO2 [Moles/Vol] 27.4 mmol/L Normal 21.0-32.0 [facility] Comment on above: Performed By: #### C MP, VALP #### [facility] [address] [place] [address] Dr. Erendira Warren Creatinine [Mass/Vol] 1.40 mg/dL Critically high 0.70-1.30 [facility] Comment on above: Performed By: #### C MP, VALP #### [facility] [address] [place] [address] Dr. Erendira Warren EGFR-AF MAURITIAN >60 Normal >=60 [facility] Comment on above: Performed By: #### C MP, VALP #### [facility] [address] [place] [address] Dr. Erendira Warren EGFR-NON AF MAURITIAN >60 Normal >=60 [facility] Comment on above: Performed By: #### C MP, VALP #### [facility] [address] [address] [address] Erendira Warren Globulin (S) [Mass/Vol] 4.0 g/dL Normal [facility] Comment on above: Performed By: #### C MP, VALP #### [facility] [address] [place] [address] Dr. Erendira Warren Glucose [Mass/Vol] 237 mg/dL Critically high 74-106 [facility] Comment on above: Performed By: #### C MP, VALP #### [facility] [address] [place] [address] Dr. Erendira Warren Potassium [Moles/Vol] 4.2 mmol/L Normal 3.5-5.1 [facility] Comment on above: Performed By: #### C MP, VALP #### [facility] [address] [place] [address] Dr. Erendira Warren Protein [Mass/Vol] 7.5 g/dL Normal 6.4-8.2 [facility] Comment on above: Performed By: #### C MP, VALP #### [facility] [address] [place] [address] Dr. Erendira Warren Sodium [Moles/Vol] 146 mmol/L Critically high 136-145 [facility] Comment on above: Performed By: #### C MP, VALP #### [facility] [address] [place] [address] Dr. Erendira Warren Urea nitrogen [Mass/Vol] 15.0 mg/dL Normal 7.0-18.0 [facility] Comment on above: Performed By: #### C MP, VALP #### [facility] [address] [place] [address] Dr. Erendira Warren Urea nitrogen/Creatinine [Mass ratio] 10.7 mg/mg Normal [facility] Comment on above: Performed By: #### C MP, VALP #### [facility] [address] [place] [address] Dr. Erendira Warren Vital Signs Date Time Vital Sign Value Performing Clinician Faci lity 03-16-2024 12:48-0400 Body height 180.3 cm Vickey Chelseymor NURSE PRN Work Phone: [facility] 03-16-2024 12:48-0400 Body mass index (BMI) [Ratio] 24.83 kg/m2 Vickey Gillmor NURSE PRN Work Phone: [facility] 03-16-2024 12:48-0400 Body weight 80.74 kg Vickey Chelseymor NURSE PRN Work Phone: [facility] 03-16-2024 12:48-0400 Diastolic blood pressure 71 mm[Hg] Vickey Gillmor NURSE PRN Work Phone: [facility] 03-16-2024 12:48-0400 Heart rate 81 /min Vickey Chelseymor NURSE PRN Work Phone: [facility] 03-16-2024 12:48-0400 Systolic blood pressure 113 mm[Hg] Vickey Chelseymor NURSE PRN Work Phone: [facility] Healthcare Encounters Encounter Date Encounter Type Care Provider Facility Start: 03-16-2024 End: 03-16-2024 Bamboo flowsheet Vickey Chelseymor NURSE PRN [facility] Start: 03-16-2024 End: 03-16-2024 Bamboo flowsheet Vickey Chelseymor NURSE PRN [facility] Start: 03-16-2024 End: 03-16-2024 Office outpatient visit 25 minutes Vickey Caballeror NURSE PRN Work Phone: [facility] Comment on above: Behavior disturbance (CMS/HCC) (Primary Dx); Mood disorder (CMS/HCC); Seizure (CMS/HCC); Developmental delay Start: 03-16-2024 End: 03-16-2024 ambulatory VICKEY MARQUEZ Not Available Start: 03-18-2023 End: 03-19-2023 ambulatory VERNON JANE Facility:[facility] Start: 03-18-2023 End: 03-18-2023 Lab Drop off VERNON JANE [facility] Start: 09-18-2022 [facility] Start: 08-20-2022 End: 08-25-2022 Patient encounter procedure Joselin Townsend DDJovanni Work Phone: [facility] Start: 08-12-2022 End: 08-13-[address] VERNON JANE Facility:[facility] Start: 05-21-2022 End: 05-22-[address] VERNON JANE Facility:[facility] Start: 03-22-2022 End: 03-23-[address] VERNON JANE Facility:[facility] Plan of Treatment Date Care Activity Detail Author Start: 2044 Shingles (RZV) Vacci ne (1 of 2) Shingles (RZV) Vaccine (1 of 2) [facility] Start: 03-14-2025 End: 03-14-2025 Patient encounter procedure 03/14/2025 10:30 AM EDT [facility] [address] [place] [address] Cherise Rendon DO [address] [place], [place] [id number] [facility] Start: 03-20-2024 Influenza vaccination Influenz a Vaccine (#1) [facility] Start: 03-16-2024 End: 03-16-2024 Patient encounter procedure 03/16/2024 1:00 PM EDT [facility] [address] [place] [address] Vickey Marquez NP [address] [place], [place] [facility] Comment on above: Arrived Start: 04-19-2022 Influenza vaccination Influenz a Vaccine (#1) [facility] Start: 03-20-2016 Annual wellness visit Annual W ellness Visit (G0438) [facility] Start: 2012 Hepatitis C screening Hepatitis C An tibody [facility] Start: 2012 Tetanus + diphtheria + acellular pertussis vaccine (product) Tdap Booster [facility] Start: 2009 HIV screening HIV Test [facility] Start: 1994 COVID-19 Vaccine (#1) COVID-19 Vacci ne (#1) [facility] Immunizations Immunization Date Immunization Notes Care Provider Chiquis alexandra 05-06-2023 influenza virus vacc ine, unspecified formulation Vickey Marquez NURSE PRN Work Phone: [facility] Payers Date Payer Category Payer Medicaid [id number] 2015 Medicare [id number] 1994 Unknown [id number] 2.16.84 [id number] 1994 Unknown [id number] 2.16.84 [id number] 1994 Unknown [id number] 2.16.84 [id number] 1994 Unknown [id number] [id number] 1994 Unknown [id number] 2.16.84 [id number] 1959 Medicaid [id number] 1960 Medicare [id number] Social History Date Type Detail Facility Start: 05-25-2020 End: 03-16-2024 Tobacco smoking status NHIS Never smoked tobacco [facility] Start: 05-29-2020 End: 03-16-2024 Alcohol intake Lifetime non-drinker (finding) [facility] Start: 05-25-2020 History SDOH Alcohol Frequency 1 [facility] Start: 1994 Sex Assigned At Not on file [facility] Tobacco smoking status No Smokin g Status Entered [facility] Start: 03-12-2024 End: 03-16-2024 Sex Assigned At Male Sam Barnhart [facility] Start: 03-12-2024 End: 03-16-2024 History of Social function [facility] Start: 03-16-2024 Tobacco use and exposure Smokeless tobacco non-user [facility] History of Present illness Narrative 03-16-2024 Vickey Marquez NP - 03/16/2024 1:00 PM EDT Note Date & Type Note Facility 03-16-2024 History of Presen t illness Narrative Images from the original note were not included. Chief Complaint Patient presents with Seizures Subjective Patient is here today with the hospital unit coordinator of the house (Leonora) Leonora stated there has not been any new reordered seizures that they have noticed. She stated that he has not been sleeping well. She stated that he has been restless at night recently. Leonora stated that there has not been evidence of seizures at night, she admitted he does wet the bed most nights. She stated he does not miss any doses of medicine as [facility]. Leonora the nurse was unsure if he could be given a wrist band that is padded to prevent recurrent bruising on his face due to hitting himself with wrist. Past Medical History: Diagnosis Date ADHD ([facility]) Autism ([facility]) Behavior disturbance ([facility]/HCC) Bipolar disorder (CMS/HCC) Fall Language impairment Mental problem Mental Retardation Mood disorder ([facility]/HCC) Seborrheic eczema No past surgical history on file. No family history on file. Social History Tobacco Use Smoking status: Never Smokeless tobacco: Never Substance Use Topics Alcohol use: Never Allergies: Patient has no known allergies. General: No fever or chills HEENT: No nasal congestion or runny nose Pulmonary: No shortness of breath or cough Cardiovascular: No chest pain or palpitations GI: No nausea or vomiting : No dysuria or hematuria Musculoskeletal: No new aches or pains or muscle weakness Infectious: no recurrent fevers or infections Dermatologic: No rashes or skin lesions Neurologic: No new headaches or dizziness Vitals: 03/16/24 1248 BP: 113/71 Pulse: 81 Body mass index is 24.83 kg/m . weight: 178 lb Neurologic exam: General: Normal body habitus, sitting slumped with head down and tilted to the right, will not look up, will not participate in exam Mental status: Awake Recent and remote memory unable to assess Attention and concentration will not follow commands Fund of knowledge unable to assess HEENT: Wearing helmet, healing laceration to midline frontal area Cranial nerves: CN II: Does not appear to have loss of vision CN III, IV, : No ptosis present. CN V: x CN VII: no obvious facial weakness CN VIII: Hearing appears normal CN IX and X: x CN XI: x CN XII: x Speech: nonverbal Pronator drift: x Coordination: x Sensory: x Motor: LUE 5/5 RUE 5/5 LLE 5/5 RLE 5/5 Tone: no tremor DTR: Bilateral Biceps x Bilateral BR x Bilateral Patellar x No spasticity Gait: Ataxic, unsteady Romberg's x Assessment/Plan Diagnoses and all orders for this visit: Behavior disturbance (CMS/HCC) Mood disorder (CMS/HCC) Seizure (CMS/HCC) Developmental delay 28 year old male with history of MRDD and questionable Seizure disorder. He has not had any further events or falls since his last visit. He remains on depakote per Dr. Montgomery, psych I would assume for mood stablization and his last level is 88.8 that we had to review. No labs sent to review today. . He has behavior and mood disorder that are managed by psych. This is worsening. He does hit himself and this is becoming more frequent. He is wearing a helmet as he will run and hit his head purposely into a wall or door frame. Leonora the tank house operator helper is with him today and is gently holding his right arm down to prevent him from hitting himself. He had his left arm tucked behind him. When I had him bring it forward during the exam he hit himself in the right cheek. . Leonora states he has not been sleeping well and has been restless. . We see this patient annually. We do not prescribe any meds for him at this time. I did write recommendation on report sheet. . Review and summary of old records: previous EEG with background slowing. No seizures recorded CBC BMP and liver panel were all normal when last reviewed . . . Plan Reviewed paperwork sent, no labs to review WE recommend depakote level be checked and if able to increase this in attempt to better control behaviors Continue to wear helmet Can wear a wrist/sweat band to wrist or padded gloves to decrease the insult when he hits himself in the face continue current medications monitor for any events and call if so continue with psych This was discussed with the patient, all questions were answered and they agreed with the treatment plan. The patient is to call with any worsening of the condition or new symptoms. Return to clinic: one year documented in this encounter [facility] Evaluation + Plan note 03-18-2023 Note Date & Type Note Facility 03-18-2023 Evaluation + Plan note Diagnostic Tests PendingValproic Acid Level 03/18/23 [facility] History of Present illness Narrative 08-20-2022 Joselin Townsend DDS - 08/20/2022 9:32 AM ESTJoselin Townsend DDS - 08/20/2022 12:00 AM EST Note Date & Type Note Facility 08-20-2022 History of Presen t illness Narrative ----- Saturday, August 20, 2022 at 10:16:47 AM ----- ----- Provider: No Townsend, -- Clinic: [place] ----- patient presented today with the director of critical care for OR evaluation . Patient is not verbal, very calm but refuses to open his mouth. street light inspector said they help him to brush his teeth but it is according to his cooperation. street light inspector has papers that were scanned in the system by [facility]. Patient had been in the OR on 2019. His parents are co- guardians The legal Guardian information: and Mrs. Porfirio Barker ( Krystle) Jr Jamarcus Dad' cellphone: [phone] Mom' cellphone: [phone] Address: [address] [place] [address] An order placed in the OR [place]: treatment in the OR ----- Signed on Saturday, August 20, 2022 at 11:11:43 AM ----- ----- Provider: Yaneth Rutledge DDS -- Clinic: [place] ----- documented in this encounter [facility] Evaluation note Note Date & Type Note Facility Evaluation note Diagnosis Behavior disturbance (CMS/HCC)- Primary Unspecified disturbance of conduct Mood disorder (CMS/HCC) Unspecified episodic mood disorder Seizure (CMS/HCC) Other convulsions Developmental delay Unspecified delay in development documented in this encounter [facility] Hospital course Narrative Note Date & Type Note Facility Hospital course Narrative No data available for this section [facility] Hospital Discharge instructions Note Date & Type Note Facility Hospital Discharge instructions No data available for this section [facility] Progress note Note Date & Type Note Facility Progress note No data available for this section [facility] Summary Purpose Family History No Family History Records FoundNo Family History Records FoundNo Family History Records FoundNo Family History Records Found Advance Directives No Advanced Directives Records FoundNo Advanced Directives Records FoundNo Advanced Directives Records FoundNo Advanced Directives Records Found Additional Source Comments (unrecognized sect ion and content) No Status Records FoundNo Status Records FoundNo Status Records FoundNo Status Records Found INFORMATION SOURCE (unrecogn ized section and content) DATE CREATED AUTHOR 08/13/2022 [facility] DATE CREATED AUTHOR AUTHOR'S ORGANIZ ATION 03/19/2023 [facility] DATE CREATED AUTHOR AUTHOR'S ORGANIZ ATION 03/18/2024 [facility] PSYCHIATRIC DATE CREATED AUTHOR AUTHOR'S ORGANIZ ATION 08/13/2024 [facility] Patient Care team informatio n (unrecognized section and content) Director Of Student Financial Services Relationship Specialty Start Date End Date Vernon Jane MD [facility] [address] [place] [address] PCP - General Family Medicine 03/16/24 Director Of Student Financial Services Relationship Specialty Start Date End Date Vernon Jane MD [address] [place] [address] PCP - General Family Medicine 03/16/24 Reason for Visit (unrecogniz ed section and content) Reason Comments Seizures FOR RECORDS PERTAINING TO PATIENTS WHO ARE OR HAVE BEEN ENROLLED IN A CHEMICAL DEPENDENCY/SUBSTANCEABUSE PROGRAM, SOME INFORMATION MAY BE OMITTED. This clinical summary was aggregated from multiple sources. Caution should be exercised in using it in the provision of clinical care. This summary normalizes information from multiple sources, and as a consequence, information in this document may materially change the coding, format and clinical context of patient data. In addition, data may be omitted in some cases. CLINICAL DECISIONS SHOULD BE BASED ON THE PRIMARY CLINICAL RECORDS. [employer] provides no warranty or guarantee of the accuracy or completeness of information in this document.
== END 2024-08-30 06:40 | disposition home or self-care (01) ==
LOC: LAB 06:39
PROVIDERS: PCP Family Medicine; Visit Provider Family Medicine
DX: F31.9 Bipolar disorder, unspecified (principal); Z79.899 Other long term (current) drug therapy
CPT/HCPCS: 36415; 80164

== ENCOUNTER 2025-02-23 09:06 | Outpatient (OUT) | payer MEDICARE, MEDICAID, SELFPAY ==
--- OUTSIDE RECORDS SUMMARY | 2025-02-23 09:08 | XMS_ITS | Clinical Summary ---
Author Organization [facility] Address [address], [address] [place] [address] Care Team Providers Care Jet Operator Name Role Phone Vernon James MD Primary Care Provider Allergies No known active allergies Medications busPIRone (BUSPAR) 10 MG tablet 20 mg 3 times daily 9 Active clindamycin-shanita zoyl peroxide (BENZACLIN) 1-5 % gel 9 Active cloNIDine (CATAPRES) 0.2 MG tablet 0.2 mg 3 times daily 9 Active divalproex (DEPAKOTE) [address] tablet nightly 3 tabs at bedtime 9 Active guanFACINE (INTUNIV) 2 MG TB24 extended release tablet 2 mg daily 9 Active FANAPT 12 MG TABS tablet Take 2 at bedtime 9 Active LINZESS 145 MCG capsule 145 mcg every morning (before breakfast) 9 Active lithium 300 MG capsule 300 mg 2 times daily (with meals) 9 Active LORazepam (ATIVAN) 1 MG tablet 3 times daily. 9 Active metoprolol (LOPRESSOR) 100 MG tablet 2 times daily 9 Active minocycline (MINOCIN;DYNACI N) 100 MG capsule 2 times daily 9 Active montelukast (SINGULAIR) 10 MG tablet 10 mg nightly 9 Active naltrexone (DEPADE) 50 MG tablet 100 mg 2 times daily 9 Active OLANZapine (ZYPREXA) 20 MG tablet 20 mg nightly 9 Active acetaminophen (TYLENOL) 325 MG tablet Take 650 mg by mouth every 6 hours as needed for Pain Active bisacodyl (DULCOLAX) [address] 10 mg rectally daily as needed for Constipation Active ibuprofen (ADVIL;MOTRIN) 200 MG tablet Take 200 mg by mouth every 6 hours as needed for Pain Active guaiFENesin (MUCINEX) 600 MG extended release tablet Take 1,200 mg by mouth as needed for Congestion Active senna (SENOKOT) 8.6 MG tablet Take 1 tablet by mouth as needed for Constipation Active Pediatric Multiple Vit-C-FA (CHILDRENS CHEWABLE VITAMINS) CHEW Take by mouth daily Active Active Problems No known active problems Family History Medical History Relation Name Comments Cancer Mother lymphoma Relation Name Status Comments Father Alive Mother Alive Social History Tobacco Use Types Packs/Day Years Used Date Smoking Tobacco: Never Smokeless Tobacco: Never Sex and Gender Information Value Date Recorded Sex Assigned at Not on file Legal Sex Male 2:05 PM EDT Gender Identity Not on file Sexual Orientation Not on file Last Filed Vital Signs Vital Sign Reading Time Taken Comments Blood Pressure 106/68 05/27/2019 2:00 PM EST Pulse 68 05/27/2019 2:00 PM EST Temperature - - Respiratory Rate 18 08/31/2019 11:34 AM EST Oxygen Saturation - - Inhaled Oxygen Concentration - - Weight 74.8 kg (165 lb) 05/27/2019 2:00 PM EST Height 180.3 cm (5' 11 ) 05/27/2019 2:00 PM EST Body Mass Index 23.01 05/27/2019 2:00 PM EST Plan of Treatment Not on file Insurance MEDICARE MEDICAID [place] Care Teams Jet Operator Relationship Specialty Start Date End Date Vernon Jaems MD [address] [place] [id number] PCP - General Family Medicine 05/04/19
--- OUTSIDE RECORDS SUMMARY | 2025-02-23 09:08 | XMS_ITS | Clinical Summary ---
Author Organization [facility] Address [address] [place] [address] Care Team Providers Care Librarian Specialist Name Role Phone Vernon James MD Primary Care Provider [phone] Allergies No known active allergies Medications sodium chloride ([place]) 0.65 % nasal spray Administer 1 spray into each nostril if needed for congestion Active denosumab (Prolia) 60 MG/ML solution prefilled syringe Inject 60 mg under the skin 1 (one) time Active lithium 300 MG capsule Take 300 mg by mouth in the morning and 300 mg in the evening. Take with meals. Active busPIRone (Buspar) 10 MG tablet Take 10 mg by mouth in the morning and 10 mg in the evening and 10 mg before bedtime. Active montelukast (Singulair) 10 MG tablet Take 10 mg by mouth at bedtime Active acetaminophen (Tylenol) 650 MG suppository Insert 650 mg into the rectum every 4 (four) hours if needed for mild pain or fever Active multivitamin-ch ildren's (RS Complete) 18 MG chewable tablet Chew 1 tablet Daily Active ibuprofen 200 MG tablet Take 200 mg by mouth every 6 (six) hours if needed for mild pain take 1-2 tablets by oral route every 6 hours as needed Oral Active loratadine (Claritin) 10 MG tablet Take 10 mg by mouth Daily Active iloperidone (Fanapt) 12 MG tablet Take 12 mg by mouth at bedtime Active LORazepam (Ativan) 1 MG tablet Take 1 mg by mouth every 8 (eight) hours if needed for anxiety Active linaCLOtide (Linzess) 290 MCG capsule Take 290 mcg by mouth in the morning. Take before meals. take 1 capsule (290 mcg) by oral route once daily on an empty stomach at least 30 minutes before 1st meal of the day Oral 1 . Active OLANZapine (ZyPREXA) 20 MG tablet Take 2 tablets by mouth Daily Active menthol-zinc oxide (Calmoseptine - Risamine) 0.44-20.625 % ointment Apply 1 application topically if needed for irritation *please review for potential _update for eprescription and drug interaction check* Active bisacodyl (Dulcolax) 10 MG suppository Insert 10 mg into the rectum Active metoprolol tartrate (Lopressor) 100 MG tablet Take 100 mg by mouth in the morning and 100 mg before bedtime. Active naltrexone (Depade) 50 MG tablet Take 50 mg by mouth in the morning and 50 mg before bedtime. Active ondansetron (Zofran) 4 MG tablet Take 4 mg by mouth every 6 (six) hours if needed for nausea or vomiting Active senna (Senokot) 8.6 MG tablet Take 2 tablets by mouth in the morning and 2 tablets in the evening and 2 tablets before bedtime. Active cloNIDine (Catapres) 0.2 MG tablet Take 0.2 mg by mouth in the morning and 0.2 mg in the evening and 0.2 mg before bedtime. Active guanFACINE (Tenex) 2 MG tablet Take 1 tablet by mouth in the morning and 1 tablet in the evening and 1 tablet before bedtime. Active Active Problems Problem Noted Date Diagnosed Date Seizure 03/16/2024 Developmental delay 03/16/2024 Language impairment 03/12/2024 Mood disorder 03/12/2024 Autism 03/12/2024 ADHD 03/12/2024 Behavior disturbance 03/12/2024 Mental problem 03/12/2024 Overview (03/12/2024): Mental retardation Fall 03/12/2024 Seborrheic eczema 03/12/2024 Bipolar disorder 03/12/2024 Social History Tobacco Use Types Packs/Day Years Used Date Smoking Tobacco: Never Smokeless Tobacco: Never Tobacco Cessation:Counseling Given: No Alcohol Use Standard Drinks/Week Comments Never 0 (1 standard drink = 0.6 oz pur e alcohol) Sex and Gender Information Value Date Recorded Sex Assigned at Not on file Legal Sex Male 6:40 PM EDT Gender Identity Not on file Sexual Orientation Not on file Last Filed Vital Signs Vital Sign Reading Time Taken Comments Blood Pressure 113/71 03/16/2024 12:48 PM EDT Pulse 81 03/16/2024 12:48 PM EDT Temperature - - Respiratory Rate - - Oxygen Saturation - - Inhaled Oxygen Concentration - - Weight 80.7 kg (178 lb) 03/16/2024 12:48 PM EDT Height 180.3 cm (5' 11 ) 03/16/2024 12:48 PM EDT Body Mass Index 24.83 03/16/2024 12:48 PM EDT Plan of Treatment Health Maintenance Due Date Last Done Comments Influenza Vaccine (#1) 2025 3, 05/07/2022, 05/15/2021, Additional history exists Insurance [place]ICAID [place] MEDICARE Care Teams Librarian Specialist Relationship Specialty Start Date End Date Vernon James MD [facility] [address] [place], [place] [phone] PCP - General Family Medicine 03/16/24
== END 2025-02-23 09:07 | disposition home or self-care (01) ==
LOC: RAD 09:06
PROVIDERS: PCP Family Medicine; Visit Provider Family Medicine
DX: Z79.899 Other long term (current) drug therapy (principal); M85.88 Other specified disorders of bone density and structure, other site
CPT/HCPCS: 77080

== ENCOUNTER 2025-03-07 07:13 | Outpatient (OUT) | payer MEDICARE, MEDICAID, SELFPAY ==
--- OUTSIDE RECORDS SUMMARY | 2025-03-07 07:15 | XMS_ITS | Clinical Summary ---
Author Organization [facility] Healthcare Address [address] [place] [address] Care Team Providers Care Concrete Batcher Name Role Phone Vernon James MD Primary Care Provider [phone] Allergies No known active allergies Medications sodium chloride ([place]) 0.65 % nasal spray Administer 1 spray [...] exists Insurance [place]ICAID [place] MEDICARE Care Teams Concrete Batcher Relationship Specialty Start Date End Date Vernon James MD [facility] [address] [place], [place] [phone] PCP - General Family Medicine 03/16/24
--- OUTSIDE RECORDS SUMMARY | 2025-03-07 07:15 | XMS_ITS | CCD ---
Author Organization [facility] Inform ion [facility] Care Team Providers Care Community Service Officer Coordinator Name Role Phone BUCK, DR VERNON Marinelli [...] VERNON Marinelli Primary Care Unavailable JANE, DR VERONN Marinelli Admitting Unavailable Unavailable Primary Care Provider Unavailabl e Unavailable Primary Care Provider Unavailabl e VERNON JANE Primary Care Physician VERNON JANE Attending Unavailable VERNON JANE Admitting Unavailable VICKEY MARQUEZ Attending Unavailable Jane Vernon GORDON Primary Care Provider [phone] YSABEL OLSEN Referring Unavailable PROVIDER, UNKNOWN Admitting Unavailable PROVIDER, UNKNOWN Attending Unavailable PROVIDER, UNKNOWN Admitting Unavailable PROVIDER, UNKNOWN Attending Unavailable JEET STEELE Attending Unavailable PROVIDER, UNKNOWN Admitting Unavailable Medications Current Medications Medication Drug Class(es) Dates Sig (Normalized) Sig (Original) acetaminophen 650 mg rectal suppository (3 sources) take 650 mg rectal route every four hours as needed for pain and fever acetaminophen (Tylenol) 650 MG suppository Insert 650 mg into the rectum every 4 (four) hours if needed for mild pain or fever Active Aloe-Sodium Chloride (AYR SALINE NASAL GEL NASAL) (3 sources) apply 1 spray(s) nasal route twice daily Aloe-Sodium Chloride (AYR SALINE NASAL GEL NASAL) Instill 1 [place] into each nostril 2 times daily. Active apply 1 spray(s) nasal route twi ce daily Aloe-Sodium Chloride (AYR SALINE NASAL GEL NASAL) Instill 1 [place] into each nostril 2 times daily. 0 Active bisacodyl 10 mg rectal suppository (3 sources) Stimulant Laxative bisacodyl (Du lcolax) 10 MG suppository Insert 10 mg into the rectum Active busPIRone hydrochloride 10 mg oral tablet (6 sources) Start: 9 take 2 tablets by mouth three times daily busPIRone (BUSPAR) 10 MG tablet Take 20 mg by mouth 3 times daily. 05/13/2019 Active take 1 tablet by aylin th in the morning, then take 1 tablet by mouth in the evening, then take 1 tablet by mouth at bedtime busPIRone (Buspar) 10 MG tablet Take 10 mg by mouth in the morning and 10 mg in the evening and 10 mg before bedtime. Active cloNIDine hydrochloride 0.2 mg oral tablet (6 sources) Central alpha-2 Adrenergic Agonist Start: 05-13-2019 take 1 tablet by mouth three times daily cloNIDine (CATAPRES) 0.2 MG tablet Take 0.2 mg by mouth 3 times daily. 05/13/2019 Active 1 ml denosumab 60 mg/ml prefilled syringe (3 sources) RANK Ligand Inhibitor inject 60 mg by subcutaneous injection once denosumab (Prolia) 60 MG/ML solution prefilled syringe Inject 60 mg under the skin 1 (one) time Active ibuprofen 200 mg oral tablet (3 sources) Nonsteroidal Anti-inflammatory Drug take 1 tablet by mouth every six hours as needed for pain ibuprofen 200 MG tablet Take 200 mg by mouth every 6 (six) hours if needed for mild pain take 1-2 tablets by oral route every 6 hours as needed Oral Active linaclotide 0.29 mg oral capsule (6 sources) Guanylate Cyclase-C Agonist take 1 capsule by mouth once daily linaclotide (LINZESS) 290 MCG CAPS capsule Take 290 mcg by mouth daily. Active loratadine 10 mg oral tablet (6 sources) take 1 tablet by mouth once daily loratadine (CLARITIN) 10 MG tablet Take 10 mg by mouth daily. Active LORazepam 1 mg oral tablet (6 sources) Benzodiazepine take 1 tablet by mouth three times daily LORazepam (ATIVAN) 1 MG tablet Take 1 mg by mouth 3 times daily. Active take 1 tablet by aylin th every eight hours as needed for anxiety LORazepam (Ativan) 1 MG tablet Take 1 mg by mouth every 8 (eight) hours if needed for anxiety Active menthol 0.0044 mg/mg / zinc oxide 0.2 mg/mg topical ointment (3 sources) menthol-zinc oxi de (Calmoseptine - Risamine) 0.44-20.625 % ointment Apply 1 application topically if needed for irritation *please review for potential _update for eprescription and drug interaction check* Active montelukast 10 mg oral tablet (6 sources) Leukotriene Receptor Antagonist take 1 tablet by mouth at bedtime montelukast (SINGULAIR) 10 MG tablet Take 10 mg by mouth at bedtime. Active multivitamin-children's (RS Complete) 18 MG chewable tablet (3 sources) multivitamin-chi ldren' s (RS Complete) 18 MG chewable tablet Chew 1 tablet Daily Active naltrexone hydrochloride 50 mg oral tablet (6 sources) Opioid Antagonist take 1 tablet by mouth twice daily naltrexone 50 MG tablet Take 50 mg by mouth 2 times daily. Active ondansetron 4 mg oral tablet (3 sources) Serotonin-3 Receptor Antagonist take 1 tablet by mouth every six hours as needed for nausea and vomiting ondansetron (Zofran) 4 MG tablet Take 4 mg by mouth every 6 (six) hours if needed for nausea or vomiting Active sennosides, fpc 8.6 mg oral tablet (3 sources) take [...] meq/ml nasal solution (3 sources) sodium chloride (Lamb) 0.65 % nasal spray Administer 1 spray into each nostril if needed for congestion Active Completed/Discontinued Medications Medication Drug Class(es) Dates Sig (Normalized) Sig (Original) benzoyl peroxide 0.05 mg/mg / clindamycin 0.01 mg/mg topical gel (3 sources) Lincosamide Antibacterial Start: 04-09-2020 End: 09-16-2024 clindamycin-benzoy l peroxide (BENZACLIN) gel 04/09/2020 09/16/2024 Discontinued 24 hr guanFACINE 2 mg extended release oral tablet (6 sources) Central alpha-2 Adrenergic Agonist End: 09-16-2024 take 1 tablet by mouth once daily GuanFACINE HCl 2 MG TB24 Take 1 Tablet by mouth daily. 09/16/2024 Discontinued take 1 tablet by aylin th in the morning, then take 1 tablet by mouth in the evening, then take 1 tablet by mouth at bedtime guanFACINE (Tenex) 2 MG tablet Take 1 tablet by mouth in the morning and 1 tablet in the evening and 1 tablet before bedtime. Active iloperidone 12 mg oral tablet (6 sources) Atypical Antipsychotic Start: 05-13-2019 End: 09-16-2024 take 1 tablet by mouth at bedtime Iloperidone (Fanapt) 12 MG TABS Take 12 mg by mouth at bedtime. 05/13/2019 09/16/2024 Discontinued lithium carbonate 300 mg oral capsule (6 sources) End: 09-16-2024 take 1 capsule by mouth twice daily lithium 300 MG capsule Take 300 mg by mouth 2 times daily. 09/16/2024 Discontinued (Discontinued by another Health Care Provider) metoprolol tartrate 100 mg oral tablet (6 sources) beta-Adrenergic Jeffry End: 09-16-2024 take 1 tablet by mouth twice daily metoprolol (LOPRESSOR) 100 MG tablet Take 100 mg by mouth 2 times daily. 09/16/2024 Discontinued (Discontinued by another Health Care Provider) OLANZapine 10 mg oral tablet (6 sources) Atypical Antipsychotic End: 09-16-2024 take 1 tablet by mouth at bedtime OLANZapine (ZyPREXA) 10 MG tablet Take 10 mg by mouth at bedtime. 09/16/2024 Discontinued take 2 tablets by mouth once rosi ly OLANZapine (ZyPREXA) 20 MG tablet Take 2 tablets by mouth Daily Active Pediatric Multiple Vit-C-FA (CHILDRENS CHEWABLE VITAMINS ORAL) (3 sources) End: 09-16-2024 take 1 tablet by mouth once daily Pediatric Multiple Vit-C-FA (CHILDRENS CHEWABLE VITAMINS ORAL) Take 1 Tablet by mouth daily. 09/16/2024 Discontinued (Discontinued by another Health Care Provider) take 1 tablet by mouth once ulysses y Pediatric Multiple Vit-C-FA (CHILDRENS CHEWABLE VITAMINS ORAL) Take 1 Tablet by mouth daily. 0 Active selenium sulfide 25 mg/ml medicated shampoo (3 sources) Start: 04-09-2020 End: 09-16-2024 selenium sulfide 2.5 % topical suspension 04/09/2020 09/16/2024 Discontinued (Discontinued by another Health Care Provider) 24 hr divalproex sodium 500 mg extended release oral tablet (3 sources) Mood Stabilizer, Anti-epilepti c Agent End: 09-16-2024 take 3 tablets by mouth at bedtime divalproex ER (DEPAKOTE ER) 500 MG ER tablet Take 3 Tablets by mouth at bedtime. 09/16/2024 Discontinued Problems Active Problems Problem Classification Problem Date Documented Da te Episodic/Chronic Anxiety disorders (3 sources) Mental health problem; Translations: [Nonpsychotic mental disorder, unspecified] Onset: 03-12-2024 03-12-2024 Chronic Attention-deficit, conduct, and disruptive behavior disorders (6 sources) Attention deficit hyperactivity disorder; Translations: [Attention-deficit hyperactivity disorder, unspecified type] Onset: 03-12-2024 05-25-2020 Chronic Attention-deficit, conduct, and disruptive behavior disorders (5 sources) Disruptive behavior disorder; Translations: [Conduct disorder, unspecified] Onset: 03-12-2024 03-12-2024 Chronic Developmental disorders (6 sources) Intellectual disability; Translations: [Unspecified intellectual disabilities] Onset: 03-12-2024 05-25-2020 Chronic Disorders of teeth and jaw (6 sources) Dental caries; Translations: [Dental caries, unspecified] Onset: 05-22-2020 Resolved: 09-30-2024 05-22-2020 Episodic Disorders usually diagnosed in infancy, childhood, or adolescence (6 sources) Autistic disorder; Translations: [Autistic disorder] Onset: 03-12-2024 05-25-2020 Chronic Headache; including migraine (3 sources) Migraine; Translations: [Migraine, unspecified, not intractable, without status migrainosus] 05-25-2020 Chronic Malaise and fatigue (4 sources) Weakness; Translations: [WEAKNESS] Onset: 05-21-2022 Episodic Mood disorders (11 sources) Bipolar disorder; Translations: [Bipolar disorder, unspecified] Onset: 03-12-2024 05-25-2020 Chronic Other bone disease and musculoskeletal deformities (3 sources) Osteopenia; Translations: [Other specified disorders of bone density and structure, unspecified site] 05-25-2020 Episodic Other eye disorders (2 sources) Nystagmus; Translations: [Unspecified nystagmus] 05-25-2020 Chronic Other eye disorders (1 source) Nystagmus present; Translations: [Unspecified nystagmus] 05-25-2020 Chronic Other gastrointestinal disorders (3 sources) Dysphagia; Translations: [Dysphagia, unspecified] 05-25-2020 Episodic Other gastrointestinal disorders (3 sources) Chronic constipation; Translations: [Other constipation] 05-25-2020 Episodic Other inflammatory condition of skin (6 sources) Seborrheic dermatitis; Translations: [Seborrheic dermatitis, unspecified] Onset: 03-12-2024 05-25-2020 Episodic Other skin disorders (3 sources) Acne; Translations: [Acne, unspecified] 05-25-2020 Episodic Other upper respiratory infections (3 sources) Chronic sinusitis; Translations: [Chronic sinusitis, unspecified] 05-25-2020 Chronic Spondylosis; intervertebral disc disorders; other back problems (1 source) Spondylosis without myelopathy or radiculopathy, cervical region; Translations: [SPONDYLS W/O MYELO-/RADICULOP CERV] Onset: 05-26-2022 Chronic Past or Other Problems Problem Classification Problem Date Documented Date Episodic/Chronic Conditions associated with dizziness or vertigo (4 sources) Dizziness and giddiness; Translations: [DIZZINESS AND GIDDINESS] Onset: 03-22-2022 Episodic E Codes: Fall (3 sources) Fall; Translations: [Unspecified fall, initial encounter] Onset: 03-12-2024 03-12-2024 Episodic Epilepsy; convulsions (4 sources) Seizure; Translations: [Unspecified convulsions] Onset: 03-16-2024 03-16-2024 Episodic Other circulatory disease (1 source) Hypotension, unspecified; Translations: [HYPOTENSION UNSPECIFIED] Onset: 03-25-2022 Episodic Other injuries and conditions due to external causes (1 source) History of falling; Translations: [HISTORY OF FALLING] Onset: 03-25-2022 Episodic Other nutritional; endocrine; and metabolic disorders (4 sources) Developmental delay; Translations: [Unspecified lack of expected normal physiological development in childhood] Onset: 03-16-2024 03-16-2024 Episodic Results Test Name Value Interpretation Reference Range Facility Anesthesia Postprocedure Cassidy fisher 09-30-2024 Risk Control Officer Authentication Interface Message Text Anesthesia Postoperative Assessment: Vital Signs (most recent): BP 132/66 Pulse 98 Temp 36.2 ???C (97.1 ???F) (Temporal) Resp 16 SpO2 98% Anesthesia Post Evaluation Level of consciousness: awake Post-procedure exam normal. Body temperature, hydration status, PONV and pain evaluated and addressed. Pain management: adequate Hydration status: normal PONV:No nausea/vomiting reported Cardiopulmonary status stable Respiratory status: acceptable Cardiovascular status: acceptable ANESTHESIA NOTABLE EVENTS: No notable events documented. Normal [facility] Anesthesia Preprocedure Eval uationon 09-30-2024 Risk Control Officer Authentication Interface Message Text ASA: 3 No history of anesthetic complications NPO status: Greater than 8 hours Past Medical History and Review of Systems Pulmonary Dental Endo Neuro/Psych Cardiovascular (+) Surgical risk: intermediate; Cardiac condition: no apparent No previous ECG available GI/Hepatic/Renal Heme/Other Other ROS: Patient Active Problem List: Dental decay [K02.9] Seborrheic eczema [L21.9] Osteopenia [M85.80] Nystagmus [H55.00] Migraines [G43.909] Intellectual disability [F79] Dysphagia [R13.10] Chronic sinusitis [J32.9] Chronic constipation [K59.09] Bipolar disorder (HCC) [F31.9] Autism (HCC) [F84.0] ADHD [F90.9] Acne [L70.9] Caries [K02.9] Comorbid Conditions: Autism ID Bipolar Disorder ADHD Nystagmus Self Injurious Behavior Chronic Constipation Chronic Sinusitis Osteopenia Dysphagia Physical Exam Airway Mallampati: unable to assess TM distance: Adequate Micrognathia: Not present Jaw opening: Adequate Neck flexion: Adequate Dental Dentition: see dental notes. Pulmonary - pulmonary exam normal Cardiovascular - cardiovascular exam normal Neuro - neurological exam normal Plan Anesthesia plan: general; (ETT) Anesthesia risks / alternatives discussed pre-op Questions answered / anesthesia plan accepted Past medical history, surgical history, allergies, and medications reviewed. Pertinent laboratory tests, EKG, imaging, and consults reviewed and I have personally seen and evaluated the patient, repeating franco portions of the history and physical examination. Attestation: Anesthesia options were discussed with the patient and/or legal arborist representative. The risks, benefits and alternatives were reviewed. Questions regarding anesthesia were answered. Patient and/or legal arborist representative knows such anesthetics and procedures may be performed by Resident physicians, Certified Anesthesiologist Assistants, or Certified Nurse Anesthetists under the supervision of a physician. The patient /or the patient's legal arborist representative agree with the plan for anesthesia. MHPATFORM Normal [facility] Anesthesia Transfer Of Careo n 09-30-2024 Risk Control Officer Authentication Interface Message Text Patient taken to PACU. Patient was awake, comfortable, and stable on arrival. Anesthesia Transfer of Care Note Past Medical History: Past Medical History: Diagnosis Date Acne ADHD Autism (HCC) Bipolar disorder (HCC) Chronic constipation Chronic sinusitis Dysphagia Intellectual disability Migraines Nystagmus Osteopenia Seborrheic eczema Seizure disorder (HCC) Sleep Apnea/Positive STOP-BANG: No Problem List: Patient Active Problem List: Dental decay [K02.9] Seborrheic eczema [L21.9] Osteopenia [M85.80] Nystagmus [H55.00] Migraines [G43.909] Intellectual disability [F79] Dysphagia [R13.10] Chronic sinusitis [J32.9] Chronic constipation [K59.09] Bipolar disorder (HCC) [F31.9] Autism (HCC) [F84.0] ADHD [F90.9] Acne [L70.9] Past Surgical History: Review of patient's past surgical history indicates: NO PAST SURGICAL HISTORY DENTAL RESTORATIONS (05/28/2020) Procedure: DENTAL RESTORATIONS; Surgeon: Caty Garvin DDS; Location: [facility]; Service: Dental Allergies: Patient has no known allergies. Basic Operating Room Facts: Surgeon(s): Ysabel Olsen DMD Anesthesiologist: Julito Guerra DO CAA: Ana Askew CAA; Roya Mariee CAA DENTAL CLEANING AND RESTORATIONS (Mouth) Intraoperative Events: No acute event ASA: 3 EBL: Not documented Urine Not documented Lactated Ringers and NaCl 0.9%: Fluid Totals (Filter: LR and NaCl 0.9% Medications Shown) Medication Calculated Total Lactated Ringers 400 mL / 1 bag Cell Saver: Not documented Blood Volume Values: Blood Products None MTP Blood: MTP PRBC: Not documented MTP FFP: Not documented MTP PLT: Not documented MTP Cryo: Not documented MTP Whole Blood: Not documented Current Vasoactive Medications: {Vasoactive Medications: None Lines, Drains, Airways Peripheral IV Access: 09/30/24801 22 gauge Left Forearm (Active) Airway Insertion Details [REMOVED] Advanced Airway: ETT, Nasal;Cuffed #7 (Removed) 09/30/24 0808 Pre-Oxygenation/ Induction: Mask Rapid Sequence Induction?: Mask Ventilation: Easy;w/nasal airway Blade Type: Mac Blade Size: 4 Visualization: Grade 1 Airway Type: ETT, Nasal;Cuffed Airway Size: #7 Post Insertion Assessment: Confirmation: Equal bilateral breath sounds, CO2 confirmed # Attempts >1: Special Equipment: Present on Admission?: Previously Removed / Not Present: Removal Reason: Not Removed at Discharge: Removed 09/30/24 0916 Location (cm) 28 09/30/24 08 Measured from: Naris 09/30/24814 Secured via: Taped 09/30/24814 Site Assessment WNL 09/30/24814 All non-working IVs have been removed: N/A Laboratory Data: CBC (last 3 years, up to 8 values) No lab values to display. BMP (last 3 years, up to 8 values) No lab values to display. Basic Metabolic Panel No lab values to display. No results found for: INR No result for BNP LFT's (last 3 years, up to 8 values) No lab values to display. Arterial Blood Gases None Hand off Completed: Yes 1. The patient was identified. 2. Pertinent medical history was relayed. 3. A brief discussion was had about any pertinent surgical/ procedural issues. 4. Intraoperative/ anesthetic management issue and concerns were discussed. 5. Plans for the early post-operative period relayed. 6. An opportunity for questions and acknowledgment of understanding of the report was received. NIYAH Prieto Normal [facility] Brief Operative Noteon 09-30 Risk Control Officer Authentication Interface Message Text Brief Operative Note [facility] OR 3 Adi Ricketts 29 year old male Surgical Contact Serial Number: [id number] Preoperative Diagnosis: Pre-op Diagnosis * Caries [K02.9] ADHD, autism, bipolar disorder, chronic constipation, chronic sinusitis, dysphagia, intellectual disability, migraines, nystagmus, osteopenia, seborrheic eczema, seizure disorder Postoperative Diagnosis: ADHD, autism, bipolar disorder, chronic constipation, chronic sinusitis, dysphagia, intellectual disability, migraines, nystagmus, osteopenia, seborrheic eczema, seizure disorder Procedures: Full mouth x-rays [76977] Full mouth examination [47046] Dental prophylaxis [25235] Dental restorations [20025] Surgeon(s): Surgeon(s): Ysabel Olsen DMD Staff: Spring Floor Service Worker Nurse: Nasim Branham Anesthesia: General Anesthesiologist: Julito Guerra DO CAA: Ana Askew CAA Specimen(s): * No specimens in log * Estimated Blood Loss: less than 5 cc Lines/Drains: * No LDAs found * Temporarily Retained Foreign Object: No Findings: Normal Complications: None Status at end of surgery: Stable Activity: Ad Catalina, weight bearing as tolerated Surgical wound class: No wound. Patient Class: Outpatient Surgery. Is this a patient scheduled as an outpatient that needs to be admitted as an inpatient? No Dr. Olsen was present in the OR for the critical portion of the procedure and procedure sign-out. Signed by Sudarshan Duckworth DMD 09/30/2024 7:32 AM Normal [facility] OP Noteon 09-30-2024 Risk Control Officer Authentication Interface Message Text Operative Note [facility] OR 3 Adi Ricketts 29 year old male Surgical Contact Serial Number: [id number] Preoperative Diagnosis: Pre-op Diagnosis * Caries [K02.9] ADHD, autism, bipolar disorder, chronic constipation, chronic sinusitis, dysphagia, intellectual disability, migraines, nystagmus, osteopenia, seborrheic eczema, seizure disorder Postoperative Diagnosis: ADHD, autism, bipolar disorder, chronic constipation, chronic sinusitis, dysphagia, intellectual disability, migraines, nystagmus, osteopenia, seborrheic eczema, seizure disorder Procedures: Full mouth x-rays [66796] Full mouth examination [46132] Dental prophylaxis [93265] Dental restorations [88324] Surgeon: Ysabel Olsen DMD Mine Superintendent Surgeon: Sudarshan Duckworth DMD Anesthesia: General- Oral ETT Estimated Blood Loss: <5 cc IV Fluids: 400 cc Urine Output: Not measured. Findings: The patient was brought to the operating room and placed in the supine position on the operating room table. Following satisfactory induction of GA. The patient was intubated with a nasal endotracheal tube. He was then prepped and drapped in the usual sterile fashion for dental procedures. Full mouth series were then taken and an oral examination was completed. A moistened throat pack was then placed. Full mouth scaling and root planing was then performed. The radiographs were examined by the attending and the resident and used in conjunction with th oral exam to formulate a treatment plan. The restorative aspect of the treatment plan included the following: #30 occlusal islam with composite. These restorations were placed following excavation of the carious lesions on each tooth. The surgical aspect of the treatment plan included the following extraction(s) and/or root removal: no extractions. The remaining dentition was then polished with prophy paste. The oral cavity was irrigated and suctioned then the throat pack was removed. Fluoride treament was placed on the remaining dentition. The patient tolerated the procedure well was extubated in the operating room, and taken to the PACU in stable condition. Complications: None Status at end of surgery: Stable Medications: No outpatient medications have been marked as taking for the 09/30/24 encounter (Hospital Encounter). Dictated by: Ysabel Olsen DMD: I was present for the critical portions of the procedure. Sudarshan Duckworth DMD 09/30/2024 7:36 AM Normal [facility] Progress Noteson 09-30-2024 Risk Control Officer Authentication Interface Message Text ----- Monday, September 30, 2024 at 9:14:00 AM ----- ----- Provider: Jac - Ysabel Olsen DMD -- Clinic: [facility] ----- Pt. was seen in [place] OR under GA. Comp ex, FMX, and prophy and fluoride applied. #31 small occlusal done with flowable. See op note below: Operative Note [facility] OR 3 Adi Ricketts 29 year old male Surgical Contact Serial Number: [id number] Preoperative Diagnosis: Pre-op Diagnosis * Caries [K02.9] ADHD, autism, bipolar disorder, chronic constipation, chronic sinusitis, dysphagia, intellectual disability, migraines, nystagmus, osteopenia, seborrheic eczema, seizure disorder Postoperative Diagnosis: ADHD, autism, bipolar disorder, chronic constipation, chronic sinusitis, dysphagia, intellectual disability, migraines, nystagmus, osteopenia, seborrheic eczema, seizure disorder Procedures: Full mouth x-rays [10233] Full mouth examination [32571] Dental prophylaxis [99201] Dental restorations [54382] Surgeon: Ysabel Olsen DMD Mine Superintendent Surgeon: Sudarshan Duckworth DMD Anesthesia: General- Oral ETT Estimated Blood Loss: <5 cc IV Fluids: 400 cc Urine Output: Not measured. Findings: The patient was brought to the operating room and placed in the supine position on the operating room table. Following satisfactory induction of GA. The patient was intubated with a nasal endotracheal tube. He was then prepped and drapped in the usual sterile fashion for dental procedures. Full mouth series were then taken and an oral examination was completed. A moistened throat pack was then placed. Full mouth scaling and root planing was then performed. The radiographs were examined by the attending and the resident and used in conjunction with th oral exam to formulate a treatment plan. The restorative aspect of the treatment plan included the following: #30 occlusal islam with composite. These restorations were placed following excavation of the carious lesions on each tooth. The surgical aspect of the treatment plan included the following extraction(s) and/or root removal: no extractions. The remaining dentition was then polished with prophy paste. The oral cavity was irrigated and suctioned then the throat pack was removed. Fluoride treament was placed on the remaining dentition. The patient tolerated the procedure well was extubated in the operating room, and taken to the PACU in stable condition. Complications: None Status at end of surgery: Stable Medications: Medications Taking No outpatient medications have been marked as taking for the 09/30/24 encounter (Hospital Encounter). Dictated by: Ysabel Olsen DMD: I was present for the critical portions of the procedure. Sudarshan Duckworth DMD 09/30/2024 7:36 AM ----- Signed on Monday, September 30, 2024 at 9:43:44 AM ----- ----- Provider: [id number] - Ysabel Olsen DMD -- Clinic: [facility] ----- Normal The [facility] Patient Instructionson 09-16 Risk Control Officer Authentication Interface Message Text RECOMMENDATIONS: Patient was instructed on the following: NPO after midnight before surgery except following meds with sip of water on AM of surgery: Buspar, Clonidine, Guanfacine, Linzess, Lorazepam, Naltrexone and Quetiapine Stop aspirin 7 days before surgery Stop NSAID 5 days before surgery Stop Vitamin E 10 days prior to surgery Stop alternative/herbal medication 10 days before surgery Jeet Steele MD Normal [facility] Progress Noteson 09-16-2024 Risk Control Officer Authentication Interface Message Text Blood pressure 119/79, pulse 101, temperature 98.6 ???F (37 ???C), temperature source Temporal, resp. rate 20, weight 195 lb 6.4 oz (88.6 kg). Medications/Allergi es Reviewed CURRENT MEDICATIONS Current Outpatient Medications Medication Sig Dispense Refill vitamin D2 (ERGOCALCIFEROL) 1.25 MG (58052 UT) capsule Take 50,000 Units by mouth once weekly. QUEtiapine (SEROquel) 400 MG tablet Take 1 Tablet by mouth 2 times daily. denosumab (Prolia) 60 MG/ML injection Inject 60 mg under the skin. Every 6 months guanFACINE HCl 2 MG TABS Take 1 Tablet by mouth 2 times a day. Iloperidone (Fanapt) 12 MG TABS Take 2 Tablets by mouth at bedtime. divalproex (DEPAKOTE SPRINKLE) 125 MG CSDR capsule Take 10 Capsules by mouth at bedtime. Aloe-Sodium Chloride (AYR SALINE NASAL GEL NASAL) Instill 1 [place] into each nostril 2 times daily. naltrexone 50 MG tablet Take 50 mg by mouth 2 times daily. montelukast (SINGULAIR) 10 MG tablet Take 10 mg by mouth at bedtime. LORazepam (ATIVAN) 1 MG tablet Take 1 mg by mouth 3 times daily. loratadine (CLARITIN) 10 MG tablet Take 10 mg by mouth daily. linaclotide (LINZESS) 290 MCG CAPS capsule Take 290 mcg by mouth daily. cloNIDine (CATAPRES) 0.2 MG tablet Take 0.2 mg by mouth 3 times daily. busPIRone (BUSPAR) 10 MG tablet Take 20 mg by mouth 3 times daily. No current facility-administer ed medications for this visit. ALLERGIES No Known Allergies Latex Allergy: No Surgical Procedure: dental restorations Surgeon: unknown Date of Surgery: 09/30/2024 HISTORY: 29 year old with history of Autism, ID, Bipolar Disorder, ADHD, Nystagmus, Self Injurious Behavior,Chronic Constipation, Chronic Sinusitis, Osteopenia and Dysphagia scheduled for above procedure My opinion was requested regarding this patient's complex presurgical evaluation. Pertinent Past Medical History and Surgical History Reviewed. Past Medical History: Diagnosis Date Acne ADHD Autism (HCC) Bipolar disorder (HCC) Chronic constipation Chronic sinusitis Dysphagia Intellectual disability Migraines Nystagmus Osteopenia Seborrheic eczema Seizure disorder (HCC) Past Surgical History: Procedure Laterality Date DENTAL RESTORATIONS N/A 05/28/2020 Procedure: DENTAL RESTORATIONS; Surgeon: Caty Garvin DDS; Location: [facility]; Service: Dental NO PAST SURGICAL HISTORY Pertinent Social History Reviewed Social History Tobacco Use Smoking Status Never Smokeless Tobacco Not on file Social History Substance and Sexual Activity Alcohol Use Never Social History Substance and Sexual Activity Drug Use Never Family History Reviewed. Family history is unknown by patient. Patient reports following maximal activity level: > 4 METS REVIEW OF SYSTEMS: Anesthesia complications: no history of difficult intubation , adverse effects of anesthetic agents, or family history of anesthesia-related problems, nor malignant hyperthermia General: Denies: fever, chills, night sweats, and weight loss RADIOLOGIST: h/o Seizures ?; follows with neurology for questionable seizures Respiratory: No h/o COPD, asthma dyspnea or recent URI Cardiovascular: No h/o chest pain/NH/CHF/valvula r disease/HTN GI: Dysphagia Chronic Constipation : No h/o disease Renal: No h/o CRI/ESRD Endo: No h/o DM, Thyroid disease or recent steroid use Heme: No h/o excessive bleeding/ bruising, no h/o anemia, no h/o blood products Onc: No h/o malignancy VTE: No h/o DVT/PE Rheum: No h/o rheumatologic disease Psychiatric: Bipolar d/o ADHD Self Injurious Behavior PHYSICAL EXAMINATION: General: Alert, no distress, uncooperative Skin: Multiple bruises and cuts on forearms and head HEENT: Wearing helmet Poor dentition Not cooperative with exam Neck: No carotid bruit, JVD, lymphadenopathy or goiter CV: Normal S1/S2, no murmurs/gallops/rub s Lungs: Lungs clear to auscultation. Good air entry bilaterally Abdomen: Abdomen soft and non-tender. BS normal No masses or organomegaly. Extremities: Extremities normal. No deformities, edema, clubbing or discoloration. Neuro: No focal neurological deficits Pulses: 2+ carotid and radial pulses : Not examined/ Not indicated AIRWAY EXAM: Mallampati Classification of Airway: Unable to assess Thyromental Distance: >6cm Neck Extension: FROM Mouth Opening: Not cooperative Teeth: Unable to fully assess Poor dentition ASA Classification: Class III: Individual with multiple system disease or well controlled major system disease. Disease status limits daily activity. EKG: Not cooperative LABS: Unavailable ASSESSMENT and PLAN Patient is a 29 year old year old male Functional capacity: >4.0 METs Comorbid Conditions: Autism ID Bipolar Disorder ADHD Nystagmus Self Injurious Behavior Chronic Constipation Chronic Sinusitis Osteopenia Dysphagia Revised Cardiac Ri (more content not included)... Normal [facility] Progress Noteson 08-11-2024 Risk Control Officer Authentication Interface Message Text Parent/guardian/pat ient was contacted for PAT AND OR Visit scheduled -- confirmed information with mom, also informed mom importance of receiving PSE call -- if not received surgery will be canceled 09/30/2024----- July at 2:54:05 PM ----- ----- Provider: LEONIE Zepeda, Dental-Groundskeeper Supervisor -- Clinic: [place] ----- Normal [facility] Valproic Acidon 03-19-2023 Valproate [Moles/Vol] 105 microgram/mL Abnormal 50-99 [facility] Comment on above: Result Comment: Crit ical Result verified by repeat analysis\Critical Result S_VPA:105.[address] JANE AT [facility] by ANA PORTER And Read Back For Confirmation at: 03/19/2023 09:27:40 Performed By: #### 2 586327, 9525250, 7513493, 2636032, 5708965, 64964678, 3724725, 3144347 #### [facility] [address] [place] [address] Auto Diffon 03-18-2023 Basophils/100 WBC (Bld) 0.9 % Normal 0.0-2.0 [facility] Comment on above: Order Comment: Order Added by Discern Expert. Performed By: #### 2 703858, 7442812, 4806815, 3382131, 2997399, 62601962, 5419962, 7955170 #### [facility] [address] [place] [address] Basophils/Leukocytes Auto (Bld) [Pure # fraction] 0.0 E9/L Normal 0.0-0.2 [facility] Comment on above: Order Comment: Order Added by Discern Expert. Performed By: #### 2 521402, 4934356, 7745444, 8690508, 9081268, 07842282, 4570273, 8082487 #### [facility] [address] [place] [address] Eosinophils/100 WBC (Bld) 4.5 % Normal 0.0-8.0 [facility] Comment on above: Order Comment: Order Added by Discern Expert. Performed By: #### 2 970491, 2592868, 2972365, 8128237, 4303015, 34517767, 9654018, 2938283 #### [facility] [address] [place] [address] Eosinophils/Leukocytes Auto (Bld) [Pure # fraction] 0.1 E9/L Normal 0.0-0.5 [facility] Comment on above: Order Comment: Order Added by Discern Expert. Performed By: #### 2 992012, 6794129, 1809831, 2314242, 2933381, 14040950, 9647280, 1835513 #### [facility] [address] [place] [address] Lymphocytes/100 WBC (Bld) 37.2 % Normal 14.0-50.0 [facility] Comment on above: Order Comment: Order Added by Discern Expert. Performed By: #### 2 731957, 7463052, 7101693, 7611158, 3943209, 73635115, 3590317, 2215847 #### [facility] [address] [place] [address] Lymphocytes/Leukocytes Auto (Bld) [Pure # fraction] 1.2 E9/L Normal 1.0-4.0 [facility] Comment on above: Order Comment: Order Added by Discern Expert. Performed By: #### 2 383672, 9595362, 7709141, 9882966, 9029362, 80232475, 1223387, 7723741 #### [facility] [address] [place] [address] Monocytes/100 WBC (Bld) 8.8 % Normal 4.0-14.0 [facility] Comment on above: Order Comment: Order Added by Discern Expert. Performed By: #### 2 105093, 9615013, 1202368, 2460063, 2252496, 98047273, 3889013, 6296426 #### [facility] [address] [place] [address] Monocytes/Leukocytes Auto (Bld) [Pure # fraction] 0.3 E9/L Normal 0.2-1.0 [facility] Comment on above: Order Comment: Order Added by Discern Expert. Performed By: #### 2 485042, 5136460, 6777104, 3748894, 6411850, 26055605, 2251929, 2934615 #### [facility] [address] [place] [address] Neutrophils/100 WBC (Bld) 48.6 % Normal 36.0-75.0 [facility] Comment on above: Order Comment: Order Added by Discern Expert. Performed By: #### 2 429423, 3812136, 8201888, 0681284, 8195166, 52788968, 3470939, 5558035 #### [facility] [address] [place] [address] Neutrophils/Leukocytes Auto (Bld) [Pure # fraction] 1.6 E9/L Low 2.0-7.5 [facility] Comment on above: Order Comment: Order Added by Discern Expert. Performed By: #### 2 618282, 9348412, 3670346, 9727146, 5412580, 36794938, 8302675, 7011482 #### [facility] [address] [place] [address] CBC w/ Auto Diffon 3 Erythrocyte distribution width (RBC) [Ratio] 14.6 % High 10.9-14.2 [facility] Comment on above: Performed By: #### 2 860002, 2381517, 9959381, 2440094, 9700500, 90742642, 6627269, 1021713 #### [facility] [address] [place] [address] Hematocrit (Bld) [Volume fraction] 42.5 % Normal 37.7-49.0 [facility] Comment on above: Performed By: #### 2 472569, 5454368, 4314343, 3626320, 6111198, 83232369, 6448947, 3738592 #### [facility] [address] [place] [address] Hemoglobin (Bld) [Mass/Vol] 14.0 g/dL Normal 13.5-17.5 [facility] Comment on above: Performed By: #### 2 023037, 7192153, 2262585, 8488389, 3571683, 18469571, 6928482, 4948856 #### [facility] [address] [place] [address] MCH (RBC) [Entitic mass] 28.2 pg Normal 27.0-34.0 [facility] Comment on above: Performed By: #### 2 883100, 1785470, 4251102, 8276138, 7167667, 35928823, 1712385, 8578367 #### [facility] [address] [place] [address] MCHC (RBC) [Mass/Vol] 33.0 g/dL Normal 31.4-36.0 [facility] Comment on above: Performed By: #### 2 025017, 1484895, 4917338, 1943258, 9977222, 04364294, 2813796, 2914269 #### [facility] [address] [place] [address] MCV (RBC) [Entitic vol] 85.4 fL Normal 80.0-100.0 [facility] Comment on above: Performed By: #### 2 076251, 1624523, 8120113, 6522559, 7390101, 88712267, 0303383, 9576437 #### [facility] [address] [place] [address] Platelet mean volume (Bld) [Entitic vol] 9.2 fL Normal 6.4-10.8 [facility] Comment on above: Performed By: #### 2 324008, 4079667, 2851130, 8030867, 9103128, 68475379, 7114217, 8172753 #### [facility] [address] [place] [address] Platelets (Bld) [#/Vol] 158.0 E9/L Normal 150.0-500.0 [facility] Comment on above: Performed By: #### 2 186707, 2588194, 6825102, 2436800, 0459393, 03523965, 0343017, 1889020 #### [facility] [address] [place], [place] [address] RBC (Bld) [#/Vol] 5.0 E12/L Normal 4.3-5.9 [facility] Comment on above: Performed By: #### 2 015819, 8259920, 0292159, 6618131, 2731065, 80256524, 5689515, 9533981 #### [facility] [address] [place] [address] WBC corrected for nucl RBC Auto (Bld) [#/Vol] 3.2 E9/L Low 4.0-11.0 [facility] Comment on above: Performed By: #### 2 696354, 2343153, 9191098, 4771602, 0100289, 26048558, 1729914, 9143449 #### [facility] [address] [place] [address] CHEMISTRYOrdered By: SYSTEM SYSTEM on 03-18-2023 Albumin [Mass/Vol] 4.3 g/dL Normal 3.3 - 5.0 gm/dL [facility] Remisol Albumin/Globulin [Mass ratio] 1.2 {ratio} Normal [...] 3.9 mmol/L Normal 3.5 - 5.3 mmol/L [facility] Remisol Protein [Mass/Vol] 7.8 g/dL Normal 6.0 - 7.8 gm/dL [facility] Remisol Sodium [Moles/Vol] 137 mmol/L Normal 135 - 145 mmol/L [facility] Remisol Urea nitrogen [Mass/Vol] 18 mg/dL Normal 5 - 21 mg/dL [facility] Remisol Urea nitrogen/Creatinine [Mass ratio] 15 mg/mg Normal 10 - 20 [facility] Remisol CMPon 03-18-2023 Albumin [Mass/Vol] 4.3 g/dL Normal 3.3-5.0 [facility] Comment on above: Performed By: #### 2 261617, 6263478, 7389304, 2388300, 6470696, 85891374, 8191789, 0615999 #### [facility] [address] [place] [address] Albumin/Globulin (S) [Mass conc ratio] 1.2 Normal 1.1-2.2 [facility] Comment on above: Performed By: #### 2 124190, 1462787, 1522189, 0167606, 8426684, 72646396, 9728258, 8526898 #### [facility] [address] [place] [address] ALP [Catalytic activity/Vol] 53 Int._Unit/L Normal 21-98 [facility] Comment on above: Performed By: #### 2 488759, 9527463, 2094060, 3788392, 3137407, 33175014, 6664602, 1323116 #### [facility] [address] [place] [address] ALT No additional P-5'-P [Catalytic activity/Vol] 17 Int._Unit/L Normal 6-46 [facility] Comment on above: Performed By: #### 2 032713, 1816081, 4303599, 8615984, 7172161, 40799809, 7086157, 0048671 #### [facility] [address] [place] [address] Anion gap [Moles/Vol] 11 mmol/L Normal 6-16 [facility] Comment on above: Performed By: #### 2 246361, 9913884, 8575249, 5011837, 6487871, 61354030, 7337490, 0366096 #### [facility] [address] [place] [address] AST [Catalytic activity/Vol] 21 Int._Unit/L Normal 5-43 [facility] Comment on above: Performed By: #### 2 323342, 0002265, 1051615, 6772988, 8673892, 95054337, 0812219, 8849897 #### [facility] [address] [place] [address] Bilirubin [Mass/Vol] 0.6 mg/dL Normal 0.0-1.1 [facility] Comment on above: Performed By: #### 2 439802, 7515057, 5960095, 5791783, 4636373, 09875639, 5888781, 5552518 #### [facility] [address] [place] [address] Calcium [Mass/Vol] 10.2 mg/dL Normal 8.9-11.1 [facility] Comment on above: Performed By: #### 2 143771, 5156270, 2499881, 8898995, 9238322, 19268515, 4538247, 3016584 #### [facility] [address] [place] [address] Chloride [Moles/Vol] 103 mmol/L Normal 101-111 [facility] Comment on above: Performed By: #### 2 346052, 4045182, 5097805, 4681382, 8313745, 57323496, 9402370, 8923322 #### [facility] [address] [place] [address] CO2 [Moles/Vol] 27 mmol/L Normal 21-31 [facility] Comment on above: Performed By: #### 2 909964, 1194417, 0305970, 0284276, 4163160, 25562823, 8909852, 1104542 #### [facility] [address] [place] [address] Creatinine [Mass/Vol] 1.2 mg/dL Normal 0.5-1.3 [facility] Comment on above: Performed By: #### 2 724015, 4706703, 9047612, 5002528, 5843534, 67199876, 8928298, 6465327 #### [facility] [address] [place] [address] Globulin (S) [Mass/Vol] 3.5 g/dL Normal 1.4-4.0 [facility] Comment on above: Performed By: #### 2 444110, 3757407, 1358711, 7951761, 8593768, 89269673, 2271522, 9514020 #### [facility] [address] [place] [address] Glucose [Mass/Vol] 90 mg/dL Normal 55-199 [facility] Comment on above: Result Comment: If t his glucose result represents a fasting glucose, interpretation should refer to the following reference range: 55-99 mg/dL Performed By: #### 2 343901, 9263306, 0527375, 1985430, 8903472, 88569285, 9792523, 6294270 #### [facility] [address] [place] [address] Potassium [Moles/Vol] 3.9 mmol/L Normal 3.5-5.3 [facility] Comment on above: Performed By: #### 2 355001, 6515876, 6446626, 3552102, 4187350, 01134968, 5696634, 1999908 #### [facility] [address] [place] [address] Protein [Mass/Vol] 7.8 g/dL Normal 6.0-7.8 [facility] Comment on above: Performed By: #### 2 601146, 1348654, 5120030, 2184585, 2181402, 28887649, 1225590, 0175903 #### [facility] [address] [place] [address] Sodium [Moles/Vol] 137 mmol/L Normal 135-145 [facility] Comment on above: Performed By: #### 2 750437, 2335070, 7466634, 6888500, 4670234, 37096170, 0656321, 4913743 #### [facility] [address] [address] Urea nitrogen [Mass/Vol] 18 mg/dL Normal 5-21 [facility] Comment on above: Performed By: #### 2 297653, 8656869, 1224603, 8418464, 1281921, 05328870, 5526898, 7030563 #### [facility] [address] [address] Urea nitrogen/Creatinine [Mass ratio] 15 No Units Normal 10-20 [facility] Comment on above: Performed By: #### 2 600989, 7666803, 2497422, 7810352, 0286331, 95503570, 2118886, 9390344 #### [facility] [address] [place] [address] Ferritinon 03-18-2023 Ferritin [Mass/Vol] 64 ng/mL Normal 24-336 [facility] Comment on above: Result Comment: NORM ALS MEN <30 YRS 16-132 ng/mL MEN >30 YRS 8-338 ng/mL WOMEN (PREMEN) 6-104 ng/mL WOMEN (POSTMEN) 12-210 ng/mL Performed By: #### 2 986821, 7774666, 6181626, 2688681, 6728540, 66740431, 4776775, 2972709 #### [facility] [address] [address] HEMATOLOGYOrdered By: SYSTEM SYSTEM on 03-18-2023 Basophils/100 [...] 5.0 E12/L Normal 4.3 - 5.9 E12/L [facility] HemeAutoSS WBC corrected for nucl RBC Auto (Bld) [#/Vol] 3.2 E9/L Low 4.0 - 11.0 E9/L [facility] HemeAutoSS Ironon 03-18-2023 Iron [Mass/Vol] 116 microgram/dL Normal 35-153 [facility] Comment on above: Performed By: #### 2 622126, 4583995, 6408024, 2070682, 9456879, 05592287, 5651726, 5781781 #### [facility] [address] [place] [address] Physician Orderon 03-18-2023 Physician Order [id number] Normal [facility] Vit B12on 03-18-2023 Cobalamin (Vitamin B12) [Mass/Vol] 591 pg/mL Normal 50-1500 [facility] Comment on above: Performed By: #### 2 680912, 9761117, 4947027, 7185080, 0941866, 84896939, 4442137, 0776172 #### [facility] [address] [place] [address] eGFRon 03-18-2023 GFR/1.73 sq M.predicted among non-blacks MDRD (S/P/Bld) [Vol rate/Area] 84 mL/min/1.73 m2 Normal >=59 [facility] Comment on above: Order Comment: Order added by Discern Expert. Result Comment: Calendar Control Clerk Blood Bank aury kidney disease could be indicated at eGFR's of less than 60 mL/min/1.73m2. Kidney failure is indicated at less than 15 mL/min/1.73m2. Performed By: #### 2 890701, 5881959, 0958018, 4541334, 4901369, 60482205, 2410987, 4631145 #### [facility] [address] [place] [address] DEPAKENE/ VALPROIC ACIDon DEPAKENE 87.4 ug/ml Normal 50.0-100.0 [facility] Comment on above: Performed By: #### V ALP #### [facility] [address] [address] [address] Yilan Warren XR CSPINE MIN 4 VIEWSon XR CSPINE MIN 4 VIEWS EXAMINATION: XR [...] CATY DEMPSEY Date: 2022-05-21 19:01 Normal [facility] CBC AUTO DIFFon 03-22-2022 BASO # 0.0 103/ul Normal 0.0-0.1 [facility] Comment on above: Performed By: #### C BC #### [facility] [address] [place] [address] Dr. Erendira Warren Basophils/100 WBC (Bld) 0.4 % Normal 0.2-2.0 [facility] Comment on above: Performed By: #### C BC #### [facility] [address] [place] [address] Dr. Erendira Warren EO # 0.1 103/ul Normal 0.0-0.7 [facility] Comment on above: Performed By: #### C BC #### [facility] [address] [place] [address] Dr. Erendira Warren Eosinophils/100 WBC (Bld) 1.6 % Normal 0.9-7.0 [facility] Comment on above: Performed By: #### C BC #### [facility] [address] [place] [address] Dr. Erendira Warren Erythrocyte distribution width (RBC) [Ratio] 13.3 % Normal 11.0-15.0 [facility] Comment on above: Performed By: #### C BC #### [facility] [address] [place] [address] Dr. Erendira Warren Hematocrit (Bld) [Volume fraction] 42.6 % Normal 42.0-54.0 [facility] Comment on above: Performed By: #### C BC #### [facility] [address] [place] [address] Dr. Erendira Warren Hemoglobin (Bld) [Mass/Vol] 13.2 g/dL Critically low 14.0-18.0 [place] Comment on above: Performed By: #### C BC #### [facility] [address] [place] [address] Dr. Erendira Warren IG # 0.03 10e3/ul Normal 0.00-0.03 [place] Comment on above: Performed By: #### C BC #### [facility] [address] [place] [address] Dr. Erendira Warren IG % 0.6 % Critically high 0.0-0.5 [facility] Comment on above: Performed By: #### C BC #### [facility] [address] [place] [address] Dr. Erendira Warren LYMPH # 1.0 103/ul Critically low 1.2-3.8 [facility] Comment on above: Performed By: #### C BC #### [facility] [address] [place] [address] Dr. Erendira Warren Lymphocytes/100 WBC (Bld) 19.6 % Critically low 20.5-60.0 [place] Comment on above: Performed By: #### C BC #### [facility] [address] [place] [address] Dr. Erendira Warren MANUAL DIFF REQ NO Normal [facility] Comment on above: Performed By: #### C BC #### [facility] [address] [place] [address] Dr. Erendira Warren MCH (RBC) [Entitic mass] 28.6 pg Normal 25.9-34.0 [facility] Comment on above: Performed By: #### C BC #### [facility] [address] [place] [address] Dr. Erendira Warren MCHC (RBC) [Mass/Vol] 31.0 g/dL Normal 29.9-35.2 [facility] Comment on above: Performed By: #### C BC #### [facility] [address] [address] [address] Erendira Warren MCV (RBC) [Entitic vol] 92.4 fL Normal 80.0-94.0 [place] Comment on above: Performed By: #### C BC #### [facility] [address] [address] [address] Erendira Warren MONO # 0.3 103/ul Normal 0.3-0.8 [place] Comment on above: Performed By: #### C BC #### [facility] [address] [address] [address] Erendira Warren Monocytes/100 WBC (Bld) 5.8 % Normal 1.7-12.0 [place] Comment on above: Performed By: #### C BC #### [facility] [address] [place] [address] Dr. Erendira Warren NEUT # 3.6 103/ul Normal 1.4-6.5 [place] Comment on above: Performed By: #### C BC #### [facility] [address] [place] [address] Dr. Erendira Warren Neutrophils/100 WBC (Bld) 72.0 % Normal 43.0-75.0 [place] Comment on above: Performed By: #### C BC #### [facility] [address] [place] [address] Dr. Erendira Warren Platelet mean volume (Bld) [Entitic vol] 11.0 fL Normal 9.5-13.5 [facility] Comment on above: Performed By: #### C BC #### [facility] [address] [address] [address] Erendira Warren PLT 172 103/ul Normal 150-450 [facility] Comment on above: Performed By: #### C BC #### [facility] [address] [address] [address] Erendira Warren RBC 4.61 106/ul Critically low 4.70-6.10 [facility] Comment on above: Performed By: #### C BC #### [facility] [address] [address] [address] Erendira Warren WBC 5.0 103/ul Normal 4.0-11.0 [place] Comment on above: Performed By: #### C BC #### [facility] [address] [place] [address] Dr. Erendira Warren DEPAKENE/VALPROICon 03-22-20 22 DEPAKENE 79.8 ug/ml Normal 50.0-100.0 [place] Comment on above: Performed By: #### C MP, VALP #### [facility] [address] [place] [address] Dr. Erendira Warren PROF 14(COMP METB)on 022 Albumin [Mass/Vol] 3.5 g/dL Normal 3.4-5.0 [facility] Comment on above: Performed By: #### C MP, VALP #### [facility] [address] [place] [address] Dr. Erendira Warren Albumin/Globulin [Mass ratio] 0.9 {ratio} Normal [place] Comment on above: Performed By: #### C MP, VALP #### [facility] [address] [place] [address] Dr. Erendira Warren ALP [Catalytic activity/Vol] 75 U/L Normal 46-116 [place] Comment on above: Performed By: #### C MP, VALP #### [facility] [address] [place] [address] Dr. Erendira Warren ALT [Catalytic activity/Vol] 35 U/L Normal 16-63 [place] Comment on above: Performed By: #### C MP, VALP #### [facility] [address] [place] [address] Dr. Erendira Warren Anion gap [Moles/Vol] 13.8 mmol/L Normal [facility] Comment on above: Performed By: #### C MP, VALP #### [facility] [address] [place] [address] Dr. Erendira Warren AST [Catalytic activity/Vol] 22 U/L Normal 15-37 [place] Comment on above: Performed By: #### C MP, VALP #### [facility] [address] [address] [address] Erendira Warren Bilirubin [Mass/Vol] 0.4 mg/dL Normal 0.2-1.0 [place] Comment on above: Performed By: #### C MP, VALP #### [facility] [address] [place] [address] Dr. Erendira Warren Calcium [Mass/Vol] 10.3 mg/dL Critically high 8.5-10.1 [facility] Comment on above: Performed By: #### C MP, VALP #### [facility] [address] [place] [address] Dr. Erendira Warren Chloride [Moles/Vol] 109 mmol/L Critically high 98-107 [place] Comment on above: Performed By: #### C MP, VALP #### [facility] [address] [place] [address] Dr. Erendira Warren CO2 [Moles/Vol] 27.4 mmol/L Normal 21.0-32.0 [facility] Comment on above: Performed By: #### C MP, VALP #### [facility] [address] [place] [address] Dr. Erendira Warren Creatinine [Mass/Vol] 1.40 mg/dL Critically high 0.70-1.30 [place] Comment on above: Performed By: #### C MP, VALP #### [facility] [address] [place] [address] Dr. Erendira Warren EGFR-AF PALESTINIAN >60 Normal >=60 [facility] Comment on above: Performed By: #### C MP, VALP #### [facility] [address] [place] [address] Dr. Erendira Warren EGFR-NON AF PALESTINIAN >60 Normal >=60 [place] Comment on above: Performed By: #### C MP, VALP #### [facility] [address] [place] [address] Dr. Erendira Warren Globulin (S) [Mass/Vol] 4.0 g/dL Normal [place] Comment on above: Performed By: #### C MP, VALP #### [facility] [address] [address] [address] Erendira Warren Glucose [Mass/Vol] 237 mg/dL Critically high 74-106 [facility] Comment on above: Performed By: #### C MP, VALP #### [facility] [address] [place] [address] Dr. Erendira Warren Potassium [Moles/Vol] 4.2 mmol/L Normal 3.5-5.1 [place] Comment on above: Performed By: #### C MP, VALP #### [facility] [address] [place] [address] Dr. Erendira Warren Protein [Mass/Vol] 7.5 g/dL Normal 6.4-8.2 [facility] Comment on above: Performed By: #### C MP, VALP #### [facility] [address] [place] [address] Dr. Erendira Warren Sodium [Moles/Vol] 146 mmol/L Critically high 136-145 [facility] Comment on above: Performed By: #### C MP, VALP #### [facility] [address] [place] [address] Dr. Erendira Warren Urea nitrogen [Mass/Vol] 15.0 mg/dL Normal 7.0-18.0 [place] Comment on above: Performed By: #### C MP, VALP #### [facility] [address] [place] [address] Dr. Erendira Warren Urea nitrogen/Creatinine [Mass ratio] 10.7 mg/mg Normal [place] Comment on above: Performed By: #### C MP, VALP #### [facility] [address] [place] [address] Dr. Erendira Warren Vital Signs Date Time Vital Sign Value Performing Clinician Evelia dai 03-16-2024 12:48-0400 Body height 180.3 cm Vickey Marquez NP Work Phone: [facility] 03-16-2024 12:48-0400 Body mass index (BMI) [Ratio] 24.83 kg/m2 Vickey Gillmor STRATEGIC ADVISOR Work Phone: [facility] 03-16-2024 12:48-0400 Body weight 80.74 kg Vickey Chelseymor STRATEGIC ADVISOR Work Phone: [facility] 03-16-2024 12:48-0400 Diastolic blood pressure 71 mm[Hg] Vickey Chelseymor STRATEGIC ADVISOR Work Phone: [facility] 03-16-2024 12:48-0400 Heart rate 81 /min Vickey Chelseymor STRATEGIC ADVISOR Work Phone: [facility] 03-16-2024 12:48-0400 Systolic blood pressure 113 mm[Hg] Vickey Chelseymor STRATEGIC ADVISOR Work Phone: [facility] Healthcare Encounters Encounter Date Encounter Type Care Provider Facility Start: 09-30-2024 End: 10-13-2024 ambulatory [facility] Start: 09-30-2024 End: 09-30-2024 ambulatory [facility] Start: 09-16-2024 End: 09-16-2024 ambulatory JEET [place] Facility:[facility] Start: 09-16-2024 Encounter for other preprocedural examination JEET [place] [facility] Start: 07-29-2024 End: 07-29-2024 Orders Only Jorge Demetrio Martinez DDS Work Phone: [facility] Start: 03-16-2024 End: 03-16-2024 Bamboo flowsheet Vickey Barbosamor STRATEGIC ADVISOR [facility] Phone: [facility] Start: 03-16-2024 End: 03-16-2024 Bamboo flowsheet Vickey Chelseymor STRATEGIC ADVISOR [facility] Start: 03-16-2024 End: 03-16-2024 Office outpatient visit 25 minutes Vickey Caballeror STRATEGIC ADVISOR [facility] Comment on above: Behavior disturbance (CMS/HCC) (Primary Dx); Mood disorder (CMS/HCC); Seizure (CMS/HCC); Developmental delay Start: 03-16-2024 End: 03-16-2024 ambulatory VICKEY MARQUEZ Not Available Start: 03-18-2023 End: 03-19-2023 ambulatory VERNON JANE Facility:[facility] Start: 03-18-2023 End: 03-18-2023 Lab Drop off VERNON JANE [facility] Start: 09-18-2022 [facility] Start: 08-20-2022 End: 08-25-2022 Patient encounter procedure Joselin Townsend DDS Work Phone: [facility] Start: 08-12-2022 End: 08-13-[address] VERNON JANE Facility: Start: 05-21-2022 End: 05-22-[address] VERNON JANE Facility:[facility] Start: 03-22-2022 End: 03-23-[address] VERNON JANE Facility:[facility] Plan of Treatment Date Care Activity Detail Author Start: 2044 Shingles (RZV) Vacci ne (1 of 2) Shingles (RZV) Vaccine (1 of 2) [facility] Start: 03-14-2025 End: 03-14-2025 Patient encounter procedure 03/14/2025 10:30 AM EDT Office Visit [facility] [address] [place] [id number] Cherise Rendon DO [address] [place] [address] [email or web address] [address] Start: 03-20-2024 COVID-19 Vaccine ( season) COVID-19 Vaccine ( season) [facility] Start: 03-20-2024 Influenza vaccination Influenz a Vaccine (#1) [facility] Start: 03-16-2024 End: 03-16-2024 Patient encounter procedure 03/16/2024 1:00 PM EDT Office Visit [email or web address] [address] [place] [id number] Vickey Marquez NP [address] [place], [place] Arrived [facility] [place] [place] [address] Comment on above: Arrived Start: 04-19-2022 Influenza vaccination Influenz a Vaccine (#1) [facility] Start: 2021 HPV Vaccine (optiona l start 27-45 years) HPV Vaccine (optional start 27-45 years) [facility] Start: 03-20-2016 Annual wellness visit Annual [facility] Visit ([id number]) [facility] Start: 2013 Hepatitis A (HAV) Vaccine (optional start 19+ years) Hepatitis A (HAV) Vaccine (optional start 19+ years) [facility] Start: 2013 Hepatitis B vaccination Hepati tis B (HBV) Vaccine (1 of 3 - 19+ 3-dose series) [facility] Start: 2012 Hepatitis C screening [facility] C [facility] Start: 2012 Tetanus + diphtheria + acellular pertussis vaccine (product) Tdap Booster [facility] Start: 2009 HIV screening HIV Test [facility] Start: 1994 COVID-19 Vaccine (#1) COVID-19 Vacci ne (#1) [facility] Immunizations Immunization Date Immunization Notes Care Provider Fa cility 05-06-2023 influenza virus vacc ine, unspecified formulation Vickey Marquez NP Work Phone: [facility] Healthcare Payers Date Payer Category Payer Medicaid [id number] 2015 Medicare [id number] 2015 Medicare FFS MEDICARE [id number] 1994 Unknown [id number] 1994 Unknown [id number] 1994 Unknown [id number] 1994 Unknown [id number] 1994 Unknown [id number] 1994 Unknown [id number] 1994 Unknown [id number] 1994 Unknown [id number] 1959 Medicaid [id number] 1960 Medicare [id number] Social History Date Type Detail Facility Start: 05-25-2020 End: 03-16-2024 Tobacco smoking status NDIS Never smoked tobacco [facility] Start: 05-29-2020 End: 03-16-2024 Alcohol intake Lifetime non-drinker (finding) [facility] Start: 05-25-2020 History SDOH Alcohol Frequency 1 [facility] Start: 1995 Sex Assigned At Not on file [facility] Tobacco smoking status No Smokin g Status Entered [facility] Start: 05-29-2020 End: 03-12-2024 Sex Assigned At Male [facility] Start: 05-29-2020 End: 03-12-2024 History of Social function [facility] Start: 03-16-2024 Tobacco use and exposure Smokeless tobacco non-user [facility] How often to you hav e a drink containing alcohol? Never [facility] Average Number of Drinks Not on file [facility] Start: 06-28-2019 Sex Male (finding) [facility] Clinical Note 09-30-2024 Note Date & Type Note Facility 09-30-2024 Note Surgical Attestation : I have reviewed the patient's History and Physical Examination. I have personally seen and evaluated the patient, repeating franco portions. There is no significant interval change. Surgery is still indicated. Yes Consent reviewed and signed by patient/family: Yes Operative site verified and marked: Yes Sudarshan Duckworth, DMD 09/30/2024 7:31 AM [facility] Clinical Note 09-23-2024 Note Date & Type Note Facility 09-23-2024 Note Anesthesia consent o btained by Dr. Yu for 09/30 dental procedure and scanned into [facility] History of Present illness Narrative 03-16-2024 Vickey Marquez NP - 03/16/2024 1:00 PM EDT Note Date & Type Note Facility 03-16-2024 History of Presen t illness Narrative Images from the original note were not included. Chief Complaint Patient presents with Seizures Subjective Patient is here today with the laborer ammunition assembly of the house (Leonora) Leonora stated there [...] of medicine as he is in a fdc. Leonora the nurse was unsure if he could be given a wrist band that is padded to prevent recurrent bruising on his face due to hitting himself with wrist. Past Medical History: Diagnosis Date ADHD (CMS/HCC) Autism (CMS/HCC) Behavior disturbance (CMS/HCC) Bipolar disorder (CMS/HCC) Fall Language impairment Mental problem Mental Retardation Mood disorder (CMS/HCC) Seborrheic eczema No past surgical history on [...] a wall or door frame. Leonora the warehouse consultant is with him today and is gently [...] clinic: one year documented in this encounter [facility] Healthcare Evaluation + Plan note 03-18-2023 Note Date & Type Note Facility 03-18-2023 Evaluation + Plan note Diagnostic Tests PendingValproic Acid Level 03/18/23 [facility] History of Present illness Narrative 08-20-2022 Joselin Townsend DDS - 08/20/2022 9:32 AM ESTJoselin Townsend DDS - 08/20/2022 12:00 AM EST Note Date & Type Note Facility 08-20-2022 History of Presen t illness Narrative ----- Thursday, August 20, 2022 at 10:16:47 AM ----- ----- Provider: Resident Josefina -- Clinic: [facility] ----- patient presented today with the healthcare consulting manager for OR evaluation . Patient is not verbal, very calm but refuses to open his mouth. account management specialist said they help him to brush his teeth but it is according to his cooperation. account management specialist has papers that were scanned in the system by Hanane. Patient had been in the OR on 2019. His parents are co- guardians The legal Guardian information: and Mrs. Adi Barker ( Krystle) Jamarcus Dad' cellphone: Mom' cellphone: [phone] Address: [address] [place] [address] An order placed in the OR [place]: treatment in the OR ----- Signed on Saturday, August 20, 2022 at 11:11:43 AM ----- ----- Provider: Yaneth Rutledge DDS -- Clinic: [place] ----- documented in this encounter [facility] Evaluation note Note Date & Type Note Facility Evaluation note Diagnosis Behavior disturbance (CMS/HCC)- Primary Unspecified disturbance of conduct Mood disorder (CMS/HCC) Unspecified episodic mood disorder Seizure (CMS/HCC) Other convulsions Developmental delay Unspecified delay in development documented in this encounter [facility] Evaluation note Note Date & Type Note Facility Evaluation note Diagnosis Caries- Primary Unspecified dental caries documented in this encounter [facility] course Narrative Note Date & Type Note Facility Hospital course Narrative No data available for this section [facility] Hospital Discharge instructions Note Date & Type Note Facility Hospital Discharge instructions No data available for this section [facility] Progress note Note Date & Type Note Facility Progress note No data available for this section [facility] Summary Purpose Family History No Family History [...] and content) DATE CREATED AUTHOR 08/13/2022 [facility] DATE CREATED AUTHOR AUTHOR'S ORGANIZ ATION 03/19/[address] [facility] DATE CREATED AUTHOR AUTHOR'S ORGANIZ ATION 03/18/2024 [facility] [place] DATE CREATED AUTHOR AUTHOR'S ORGANIZ ATION 10/15/2024 [facility] Patient Care team informatio n (unrecognized section and content) Community Service Officer Coordinator Relationship Specialty Start Date End Date Vernon Jane MD [address] [place] [address] PCP - General Family Medicine 03/16/24 Community Service Officer Coordinator Relationship Specialty Start Date End Date Vernon Jane MD [address] [place] [address] PCP - General Family Medicine 03/16/24 Reason [...] BE BASED ON THE PRIMARY CLINICAL RECORDS. [facility]. provides no warranty or guarantee of the accuracy or completeness of information in this document.
--- OUTSIDE RECORDS SUMMARY | 2025-03-07 07:15 | XMS_ITS | Clinical Summary ---
Author Organization [facility] Address [address], [address] [place] [address] Care Team Providers Care Lozenge Dough Mixer Name Role Phone Vernon James MD Primary [...] file Insurance MEDICARE MEDICAID [place] Care Teams Lozenge Dough Mixer Relationship Specialty Start Date End Date Vernon James MD [address] [place] [id number] PCP - General Family Medicine 05/04/19
[2025-03-07 07:32] LABS: Hematocrit 44.9 % (42.0-54.0); Hemoglobin 15.0 g/dL (14.0-18.0); Immature Granulocytes Abs Auto 0.01 10^3/uL (0.00-0.03); Immature Granulocytes Pct Auto 0.3 % (0.0-0.5); Lymphocytes Absolute Auto 1.5 10^3/uL (1.2-3.8); Mean Corpuscular HGB Conc 33.4 g/dL (29.9-35.2); Mean Corpuscular Hemoglobin 28.5 pg (25.9-34.0); Mean Corpuscular Volume 85.4 fL (80.0-94.0); Platelet Count 174 10^3/uL (150-450); Red Blood Count 5.26 10^6/uL (4.70-6.10); White Blood Count 3.2 10^3/uL (4.0-11.0)
[2025-03-07 09:25] LABS: Alanine Aminotransferase 31 U/L (16-63); Albumin Globulin Ratio 1.0; Albumin Level 4.3 g/dL (3.4-5.0); Alkaline Phosphatase 74 U/L (46-116); Anion Gap 16.4; Aspartate Amino Transferase 21 U/L (15-37); Blood Urea Nitrogen 17.0 mg/dL (7.0-18.0); Calcium 10.4 mg/dL (8.5-10.1); Carbon Dioxide 24.7 mmol/L (21.0-32.0); Chloride 111 mmol/L (98-107); Estimated GFR (African America >60 (>=60 mL/min/1.73m^2); Estimated GFR (Non-African Ame >60 (>=60 mL/min/1.73m^2); Globulin 4.4 g/dL; Glucose 88 mg/dL (74-106); Potassium 4.1 mmol/L (3.5-5.1); Sodium 148 mmol/L (136-145); Total Protein 8.7 g/dL (6.4-8.2)
== END 2025-03-07 07:14 | disposition home or self-care (01) ==
LOC: LAB 07:13
PROVIDERS: PCP Family Medicine; Visit Provider Family Medicine
DX: M85.88 Other specified disorders of bone density and structure, other site (principal); K59.00 Constipation, unspecified; L70.8 Other acne; F90.9 Attention-deficit hyperactivity disorder, unspecified type; F31.9 Bipolar disorder, unspecified; F84.0 Autistic disorder; Z79.899 Other long term (current) drug therapy
CPT/HCPCS: 36415; 80053; 80164; 82306; 85025